=== PATIENT | male | born 1965 | race American Indian/Alaskan Native ===

== ENCOUNTER 2020-06-20 09:59 | Emergency (ER) | payer MEDICARE, MEDICAID, OTHER ==
[2020-06-20 10:51] LABS: ANION GAP 18.3 mEq/L (7-13)
--- NOTE | 2020-06-20 10:51 | EDM.PDOC ---
ED HPI GENERAL MEDICAL PROBLEM - General Chief Complaint: Respiratory Problem Stated Complaint: SHORTNESS OF BREATH Time Seen by Provider: 06/20/20 10:40 Source of Information: Reports: Patient History Limitations: Reports: No Limitations - History of Present Illness INITIAL COMMENTS - FREE TEXT/NARRATIVE: This 55 yo male patient reports to the ED with shortness of breath. The patient reports he has been noticing increased shortness of breath over the past month. The patient reports he has not attempted to be seen in the clinic. The patient reports he is supposed to be on medications, but has not taken them for "awhile". The patient reports he was out hunting deer this morning when he felt short of breath. The patient reports he used his 's nebulizer with reduction in his symptoms. Duration: Week(s):, Intermittent Location: Reports: Chest Quality: Reports: Other Severity: Moderate Improves with: Reports: Rest Worsens with: Reports: Movement Context: Reports: Other Associated Symptoms: Reports: No Other Symptoms - Related Data Allergies Allergy/AdvReac Type Severity Reaction Status Date / Time No Known Allergies Allergy Verified 06/20/20 10:11 Home Meds: Home Meds Omeprazole 1 tab PO DAILY 03/24/16 [History] Past Medical History HEENT History: Reports: None Cardiovascular History: Reports: Hypertension Respiratory History: Reports: Asthma, COPD Gastrointestinal History: Reports: None, GERD Genitourinary History: Reports: None Musculoskeletal History: Reports: None Neurological History: Reports: None Psychiatric History: Reports: None Endocrine/Metabolic History: Reports: Diabetes, Type II Hematologic History: Reports: Anemia Immunologic History: Reports: None Oncologic (Cancer) History: Reports: None Dermatologic History: Reports: None - Past Surgical History Head Surgeries/Procedures: Reports: None HEENT Surgical History: Reports: None GI Surgical History: Reports: Colonoscopy, EGD Musculoskeletal Surgical History: Reports: None Social & Family History - Tobacco Use Tobacco Use Status *Q: Current Every Day Tobacco User Years of Tobacco use: 20 Packs/Tins Daily: 0.5 - Caffeine Use Caffeine Use: Reports: None - Recreational Drug Use Recreational Drug Use: No ED ROS GENERAL - Review of Systems Review Of Systems: Comprehensive ROS is negative, except as noted in HPI. ED EXAM, GENERAL - Physical Exam Exam: See Below Exam Limited By: No Limitations General Appearance: Alert, WD/WN, Mild Distress Eye Exam: Bilateral Eye: EOMI, Normal Inspection, PERRL Ears: Normal External Exam, Normal Canal, Hearing Grossly Normal, Normal TMs Nose: Normal Inspection, Normal Mucosa, No Blood Throat/Mouth: Normal Inspection, Normal Lips, Normal Teeth, Normal Gums, Normal Oropharynx, Normal Voice, No Airway Compromise Head: Atraumatic, Normocephalic Neck: Normal Inspection, Supple, Non-Tender, Full Range of Motion Respiratory/Chest: No Respiratory Distress, Lungs Clear, Normal Breath Sounds, No Accessory Muscle Use, Chest Non-Tender Cardiovascular: Normal Peripheral Pulses, Regular Rate, Rhythm, No Edema, No Gallop, No JVD, No Murmur, No Rub GI/Abdominal: Normal Bowel Sounds, Soft, Non-Tender, No Organomegaly, No Distention, No Abnormal Bruit, No Mass (Male) Exam: Deferred Rectal (Males) Exam: Deferred Back Exam: Normal Inspection, Full Range of Motion, NT Extremities: Normal Inspection, Normal Range of Motion, Non-Tender, Normal Capillary Refill, No Pedal Edema Neurological: Alert, Oriented, CN II-XII Intact, Normal Cognition, Normal Gait, Normal Reflexes, No Motor/Sensory Deficits Psychiatric: Normal Affect, Normal Mood Skin Exam: Warm, Dry, Intact, Normal Color, No Rash Lymphatic: No Adenopathy Course - Vital Signs Last Recorded V/S: Last Vital Signs Temp 36.6 C 06/20/20 10:18 Pulse 79 06/20/20 10:18 Resp 13 06/20/20 10:18 BP 182/81 H 06/20/20 10:18 Pulse Ox 100 06/20/20 10:18 - Orders/Labs/Meds Orders: Active Orders 24 hr Category Date Time Status EKG Documentation Completion [RC] STAT Care 06/20/20 10:05 Active CULTURE BLOOD [BC] Stat Lab 06/20/20 10:17 Received Labs: Laboratory Tests 06/20/20 06/20/20 06/20/20 Range/Units 10:00 10:17 10:17 WBC 6.2 (5.0-10.0) 10^3/uL RBC 2.92 L (4.6-6.2) 10^6/uL Hgb 8.5 L D (14.0-18.0) g/dL Hct 26.7 L (40.0-54.0) % MCV 91.4 D (80-100) fL MCH 29.1 (27.0-34.0) pg MCHC 31.8 L (33.0-35.0) g/dL Plt Count 165 (150-450) 10^3/uL Neut % (Auto) 68.6 (42.2-75.2) % Lymph % (Auto) 19.6 L (20.5-50.1) % [place] % (Auto) 6.9 (2-8) % Eos % (Auto) 4.7 H (1.0-3.0) % Baso % (Auto) 0.2 (0.0-1.0) % Sodium 142 (136-145) mmol/L Potassium 5.3 H (3.5-5.1) mmol/L Chloride 109 H (98-107) mmol/L Carbon Dioxide 20 L (21-32) mmol/L Anion Gap 18.3 H (7-13) mEq/L BUN 58 H (7-18) mg/dL Creatinine 7.87 H* (0.70-1.30) mg/dL Est Cr Clr Drug Dosing 10.36 mL/min Estimated GFR (MDRD) 7 BUN/Creatinine Ratio 7.4 (No establ ref range) Glucose 94 (74-99) mg/dL Lactic Acid (0.4-2.0) mmol/L Calcium 7.2 L (8.5-10.1) mg/dL Total Bilirubin 0.3 (0.2-1.0) mg/dL AST 16 (15-37) U/L ALT 17 (16-63) U/L Alkaline Phosphatase 92 (46-116) U/L Troponin I 0.077 H* (0.000-0.056) ng/mL B-Natriuretic Peptide 766 H (0-100) pg/ml Total Protein 7.2 (6.4-8.2) g/dL Albumin 3.0 L (3.4-5.0) g/dL Globulin 4.2 Albumin/Globulin Ratio 0.71 Urine Color (YELLOW) Urine Appearance (CLEAR) Urine pH (5.0-9.0) Ur Specific [place] (1.005-1.030) Urine Protein (NEGATIVE) Urine Glucose (UA) (NEGATIVE) Urine Ketones (NEGATIVE) Urine Occult Blood (NEGATIVE) Urine Nitrite (NEGATIVE) Urine Bilirubin (NEGATIVE) Urine Urobilinogen (0.2-1.0) mg/dL Ur Leukocyte Esterase (NEGATIVE) Urine RBC /HPF Urine WBC (0-5/HPF) /HPF Ur Epithelial Cells (NOT SEEN) /HPF Urine Bacteria (0-FEW/HPF) /HPF SARS CoV-2 RNA Rapid GRACIELA Negative (NEGATIVE) 06/20/20 06/20/20 Range/Units 10:17 12:20 WBC (5.0-10.0) 10^3/uL RBC (4.6-6.2) 10^6/uL Hgb (14.0-18.0) g/dL Hct (40.0-54.0) % MCV (80-100) fL MCH (27.0-34.0) pg MCHC (33.0-35.0) g/dL Plt Count (150-450) 10^3/uL Neut % (Auto) (42.2-75.2) % Lymph % (Auto) (20.5-50.1) % [place] % (Auto) (2-8) % Eos % (Auto) (1.0-3.0) % Baso % (Auto) (0.0-1.0) % Sodium (136-145) mmol/L Potassium (3.5-5.1) mmol/L Chloride (98-107) mmol/L Carbon Dioxide (21-32) mmol/L Anion Gap (7-13) mEq/L BUN (7-18) mg/dL Creatinine (0.70-1.30) mg/dL Est Cr Clr Drug Dosing mL/min Estimated GFR (MDRD) BUN/Creatinine Ratio (No establ ref range) Glucose (74-99) mg/dL Lactic Acid 0.9 (0.4-2.0) mmol/L Calcium (8.5-10.1) mg/dL Total Bilirubin (0.2-1.0) mg/dL AST (15-37) U/L ALT (16-63) U/L Alkaline Phosphatase (46-116) U/L Troponin I (0.000-0.056) ng/mL B-Natriuretic Peptide (0-100) pg/ml Total Protein (6.4-8.2) g/dL Albumin (3.4-5.0) g/dL Globulin Albumin/Globulin Ratio Urine Color Yellow (YELLOW) Urine Appearance Clear (CLEAR) Urine pH 7.0 (5.0-9.0) Ur Specific Byers 1.025 (1.005-1.030) Urine Protein >=300 H (NEGATIVE) Urine Glucose (UA) Negative (NEGATIVE) Urine Ketones Negative (NEGATIVE) Urine Occult Blood Moderate H (NEGATIVE) Urine Nitrite Negative (NEGATIVE) Urine Bilirubin Negative (NEGATIVE) Urine Urobilinogen 0.2 (0.2-1.0) mg/dL Ur Leukocyte Esterase Negative (NEGATIVE) Urine RBC 5-10 H /HPF Urine WBC Not seen (0-5/HPF) /HPF Ur Epithelial Cells Rare (NOT SEEN) /HPF Urine Bacteria Not seen (0-FEW/HPF) /HPF SARS CoV-2 RNA Rapid GRACIELA (NEGATIVE) Meds: Medications Discontinued Medications Generic Name Dose Route Start Last Admin Trade Name Freq PRN Reason Stop Dose Admin Aspirin 324 mg 06/20/20 10:54 06/20/20 10:59 Aspirin PO 06/20/20 10:55 324 mg ONETIME ONE Administration Furosemide 40 mg 06/20/20 11:10 06/20/20 11:15 Lasix IVPUSH 06/20/20 11:11 40 mg NOW ONE Administration Departure - Departure Time of Disposition: 18:25 Disposition: DC/Tfer to [facility] Condition: Serious Clinical Impression: Elevated troponin I level Acute renal failure (ARF) Qualifiers: Acute renal failure type: unspecified Qualified Code(s): N17.9 - Acute kidney failure, unspecified - Discharge Information *PRESCRIPTION DRUG MONITORING PROGRAM REVIEWED*: Not Applicable *COPY OF PRESCRIPTION DRUG MONITORING REPORT IN PATIENT ANDREE: Not Applicable Forms: Interfacility Transfer [facility] Care Plan Goals: Discussed the patient's history, examination, lab results, EKG and x-ray results with Dr. Bunn ([facility]). Dr. Bunn accepted the patient for continued evaluation and management as an inpatient at [facility] in [place]. The patient will be transported by [facility]. Sepsis Event Note (ED) - Evaluation Sepsis Screening Result: No Definite Risk - Focused Exam Vital Signs: Vital Signs Temp Pulse Resp BP Pulse Ox 06/20/20 10:18 36.6 C 79 13 182/81 H 100 - My Orders Last 24 Hours: My Active Orders 06/20/20 10:05 EKG Documentation Completion [RC] STAT 06/20/20 10:17 CULTURE BLOOD [BC] Stat - Assessment/Plan Last 24 Hours: My Active Orders 06/20/20 10:05 EKG Documentation Completion [RC] STAT 06/20/20 10:17 CULTURE BLOOD [BC] Stat
[2020-06-20] MEDS ORDERED: Aspirin 81 MG Tab.Chew PO ONE (10:54)
[2020-06-20] MEDS ORDERED: Furosemide 40 MG/4 ML VIAL IVPUSH ONE (11:10)
--- NOTE | 2020-06-20 11:12 | CR ---
PROCEDURE INFORMATION: Exam: XR Chest, 2 Views Exam date and time: 06/20/2020 10:48 AM Age: 55 years old Clinical indication: Shortness of breath; Additional info: Short of breath TECHNIQUE: Imaging protocol: XR of the chest Views: 2 views. COMPARISON: CR CHEST PA/LAT 10/18/2008 2:38 PM FINDINGS: Lungs: There is patchy perihilar airspace opacity concerning for pneumonia. There is no pulmonary edema. Pleural space: Trace pleural fluid on the right. Heart/Mediastinum: Heart size is at the upper limits of normal. Bones/joints: Unremarkable. IMPRESSION: 1. Patchy perihilar infiltrates. Pneumonia is possible.
[2020-06-20 18:30] VITALS: BP 174/87; PULSE 72
== END 2020-06-20 19:00 ==
LOC: DL.ED 09:59
DX: N17.9 Acute kidney failure, unspecified (principal); R77.8 Other specified abnormalities of plasma proteins; I10 Essential (primary) hypertension; J44.9 Chronic obstructive pulmonary disease, unspecified; K21.9 Gastro-esophageal reflux disease without esophagitis; E11.9 Type 2 diabetes mellitus without complications; F17.210 Nicotine dependence, cigarettes, uncomplicated; Z20.828 Contact with and (suspected) exposure to other viral communicable diseases; Z79.899 Other long term (current) drug therapy
CPT/HCPCS: 36415; 71046; 80053; 81001; 83605; 83880; 84484; 85025; 87040; 93005; 96374; 99285; A9270; J1940; U0002

== ENCOUNTER 2021-07-01 17:27 | Inpatient (IN) | payer MEDICARE, OTHER ==
--- NOTE | 2021-07-01 18:00 | EDM.PDOC ---
ED HPI GENERAL MEDICAL PROBLEM - General Stated Complaint: CLINIC REFERED Time Seen by Provider: 07/01/21 17:40 Source of Information: Reports: Patient, RN, RN Notes Reviewed History Limitations: Reports: No Limitations - History of Present Illness INITIAL COMMENTS - FREE TEXT/NARRATIVE: Jona is a 56 y/o male with a history of ESRD who stopped hemodialysis approximately six months ago, who presents to the ED at the request of his PCP from [facility] for low hemoglobin. Per Dr. Clark, the patient was examined in the clinic today for acute epistaxis which had been ongoing for >24 hours. By the time he was evaluated the bleeding had stopped, but his blood draw revealed a Hgb of 6.0; the patient had already left the clinic. Upon arrival to this facility the patient is alert and oriented with no evidence of activity bleeding to either nare, dried blood noted to his left nare. He attest to mild blurry vision. He denies dizziness, lightheadedness, falls, chest pain/pressure, shortness of breath, or palpitations. He denies use of blood thinners or history of blood dyscrasias. - Related Data Allergies Allergy/AdvReac Type Severity Reaction Status Date / Time No Known Allergies Allergy Verified 07/01/21 18:11 Home Meds: Home Meds Omeprazole 1 tab PO DAILY 03/24/16 [History] Past Medical History HEENT History: Reports: None Cardiovascular History: Reports: Hypertension Respiratory History: Reports: Asthma, COPD Gastrointestinal History: Reports: None, GERD Genitourinary History: Reports: None Musculoskeletal History: Reports: None Neurological History: Reports: None Psychiatric History: Reports: None Endocrine/Metabolic History: Reports: Diabetes, Type II Hematologic History: Reports: Anemia Immunologic History: Reports: None Oncologic (Cancer) History: Reports: None Dermatologic History: Reports: None - Past Surgical History Head Surgeries/Procedures: Reports: None HEENT Surgical History: Reports: None GI Surgical History: Reports: Colonoscopy, EGD Musculoskeletal Surgical History: Reports: None Social & Family History - Caffeine Use Caffeine Use: Reports: None ED ROS GENERAL - Review of Systems Review Of Systems: Comprehensive ROS is negative, except as noted in HPI. ED EXAM, GENERAL - Physical Exam Exam: See Below Exam Limited By: No Limitations General Appearance: Alert, No Apparent Distress Eye Exam: Bilateral Eye: EOMI, Normal Inspection, PERRL (3m) Ears: Normal External Exam, Hearing Grossly Normal Nose: Normal Inspection, Normal Mucosa, No Blood Throat/Mouth: Normal Inspection, Normal Oropharynx, Normal Voice, No Airway Compromise Head: Atraumatic, Normocephalic Neck: Normal Inspection, Supple, Non-Tender, Full Range of Motion Respiratory/Chest: No Respiratory Distress, Lungs Clear, Normal Breath Sounds, No Accessory Muscle Use, Chest Non-Tender Cardiovascular: Normal Peripheral Pulses, Regular Rate, Rhythm, No Edema, No Gallop, No JVD, No Murmur, No Rub, Tachycardia Peripheral Pulses: 2+: Radial (L), Radial (R) GI/Abdominal: Normal Bowel Sounds, Soft, Non-Tender, No Distention, No Abnormal Bruit, No Mass, Pelvis Stable (Male) Exam: Deferred Rectal (Males) Exam: Deferred Back Exam: Normal Inspection Extremities: Normal Inspection, Normal Range of Motion, Non-Tender, Normal Capillary Refill, Pedal Edema (Trace pitting, bilaterally), Other (Fistula to left inner forearm, bruit and thrill present) Neurological: Alert, Oriented, CN II-XII Intact, Normal Cognition, Normal Gait, No Motor/Sensory Deficits Psychiatric: Normal Affect, Normal Mood Skin Exam: Warm, Dry, Intact, No Rash, Pallor. No: Cyanosis, Ecchymosis, E rythema, Jaundice, Mottled Course - Vital Signs Last Recorded V/S: Last Vital Signs Temp 97.3 F 07/02/21 08:00 Pulse 89 07/02/21 08:00 Resp 18 07/02/21 08:00 BP 161/89 H 07/02/21 08:00 Pulse Ox 99 07/02/21 08:00 - Orders/Labs/Meds Orders: Active Orders 24 hr Category Date Time Status Admission Diagnosis [ADT] Stat ADT 07/01/21 18:49 Ordered Admission Status [Patient Status] [ADT] Routine ADT 07/01/21 18:49 Active Transfuse Red Blood Cells [COMM] Stat Oth 07/01/21 18:02 Ordered Medication Orders Nitroglycerin (Nitroglycerin 0.4 Mg Tab.Sl) 0.4 mg SL Q5M PRN PRN Reason: Chest Pain Last Admin: 07/01/21 20:14 Dose: 0.4 mg Documented by: SALAZAR Labs: Laboratory Tests 07/01/21 07/01/21 07/01/21 Range/Units 17:48 17:48 17:48 WBC 5.8 (5.0-10.0) 10^3/uL RBC 1.83 L (4.6-6.2) 10^6/uL Hgb 5.7 L* D (14.0-18.0) g/dL Hct 17.5 L* (40.0-54.0) % MCV 95.6 D (80-100) fL MCH 31.1 (27.0-34.0) pg MCHC 32.6 L (33.0-35.0) g/dL Plt Count 175 (150-450) 10^3/uL Neut % (Auto) 62.9 (42.2-75.2) % Lymph % (Auto) 26.5 (20.5-50.1) % [place] % (Auto) 6.7 (2-8) % Eos % (Auto) 3.4 H (1.0-3.0) % Baso % (Auto) 0.5 (0.0-1.0) % Sodium 141 (136-145) mmol/L Potassium 7.3 H* D (3.5-5.1) mmol/L Chloride 106 (98-107) mmol/L Carbon Dioxide 12 L (21-32) mmol/L Anion Gap 30.3 H (7-13) mEq/L BUN 128 H D (7-18) mg/dL Creatinine 12.19 H* D (0.70-1.30) mg/dL Est Cr Clr Drug Dosing 6.39 mL/min Estimated GFR (MDRD) 4 BUN/Creatinine Ratio 10.5 (No establ ref range) Glucose 85 (70-99) mg/dL Calcium 6.3 L (8.5-10.1) mg/dL Magnesium 2.7 H (1.8-2.4) mg/dL Total Bilirubin 0.3 (0.2-1.0) mg/dL AST 15 (15-37) U/L ALT 14 L (16-63) U/L Alkaline Phosphatase 56 (46-116) U/L Troponin I High Sens (<=76) pg/mL Total Protein 7.3 (6.4-8.2) g/dL Albumin 3.4 (3.4-5.0) g/dL Globulin 3.9 Albumin/Globulin Ratio 0.9 SARS-CoV-2 RNA (GRACIELA) (NEGATIVE) Blood Type O POSITIVE Gel Antibody Screen Negative Crossmatch See Detail 07/01/21 07/01/21 Range/Units 17:48 18:47 WBC (5.0-10.0) 10^3/uL RBC (4.6-6.2) 10^6/uL Hgb (14.0-18.0) g/dL Hct (40.0-54.0) % MCV (80-100) fL MCH (27.0-34.0) pg MCHC (33.0-35.0) g/dL Plt Count (150-450) 10^3/uL Neut % (Auto) (42.2-75.2) % Lymph % (Auto) (20.5-50.1) % [place] % (Auto) (2-8) % Eos % (Auto) (1.0-3.0) % Baso % (Auto) (0.0-1.0) % Sodium (136-145) mmol/L Potassium (3.5-5.1) mmol/L Chloride (98-107) mmol/L Carbon Dioxide (21-32) mmol/L Anion Gap (7-13) mEq/L BUN (7-18) mg/dL Creatinine (0.70-1.30) mg/dL Est Cr Clr Drug Dosing mL/min Estimated GFR (MDRD) BUN/Creatinine Ratio (No establ ref range) Glucose (70-99) mg/dL Calcium (8.5-10.1) mg/dL Magnesium (1.8-2.4) mg/dL Total Bilirubin (0.2-1.0) mg/dL AST (15-37) U/L ALT (16-63) U/L Alkaline Phosphatase (46-116) U/L Troponin I High Sens 115 H* (<=76) pg/mL Total Protein (6.4-8.2) g/dL Albumin (3.4-5.0) g/dL Globulin Albumin/Globulin Ratio SARS-CoV-2 RNA (GRACIELA) Negative (NEGATIVE) Blood Type Gel Antibody Screen Crossmatch Meds: Medications Generic Name Dose Route Start Last Admin Trade Name Freq PRN Reason Stop Dose Admin Nitroglycerin 0.4 mg 07/01/21 20:12 07/01/21 20:14 Nitroglycerin 0.4 Mg Tab.Sl SL 0.4 mg Q5M PRN Administration Chest Pain Discontinued Medications Generic Name Dose Route Start Last Admin Trade Name Masoudq PRN Reason Stop Dose Admin Albuterol 6.7 gm 07/01/21 18:42 Albuterol 6.7 Gm Inhaler INH 07/01/21 18:43 ONETIME ONE Calcium Gluconate 1 gm 07/01/21 18:24 Calcium Gluconate 10% 1 Gm/10 Ml Sdv IVPUSH 07/01/21 18:25 ONETIME ONE Dextrose/Water 50 ml 07/01/21 18:24 50% Dextrose In Water 50 Ml Syringe IVPUSH Q15M PRN Hypoglycemia Glucagon 1 mg 07/01/21 18:24 Glucagon,Human Recombinant 1 Mg Vial IM Q15M PRN Hypoglycemia Dextrose/Water 500 mls @ 500 mls/hr 07/01/21 18:24 Dextrose 10% In Water IV 07/01/21 19:23 ONETIME ONE Insulin Human Regular 10 unit 07/01/21 18:24 Insulin Regular, Human 100 Units/Ml 3 Ml Vial IV 07/01/21 18:25 ONETIME ONE Nitroglycerin Confirm 07/01/21 20:13 Nitroglycerin 0.4 Mg Tab.Sl Administered 07/01/21 20:14 Dose 0.4 mg .ROUTE .ST-MED ONE - Re-Assessments/Exams Free Text/Narrative Re-Assessment/Exam: 07/01/21 Findings of examination and lab work reviewed with patient. Discussed risk vs benefit of blood transfusion. Patient verbalized understanding and agreement with the plan of care. The patient states he is Full Code K 7.3 and Bar Pointer 12 Patient is not agreeable to receiving hemodialysis or for transfer. Will administer Albuterol inhaler, 2 puffs. Will recheck CMP following 1st unit of PRBCs. Case discussed with Dr. Chapman who kindly accepted patient for admission to this facility. Departure - Departure Time of Disposition: 19:30 Disposition: Admitted As Inpatient 64 Clinical Impression: Low hemoglobin, Acute anterior epistaxis, History of hemodialysis, Hyperkalemia, Hypermagnesemia Chronic kidney disease Qualifiers: Chronic kidney disease stage: stage 5, not on chronic dialysis Qualified Code(s): N18.5 - Chronic kidney disease, stage 5 - Discharge Information - My Orders Last 24 Hours: My Active Orders 07/01/21 18:02 Transfuse Red Blood Cells [COMM] Stat 07/01/21 18:49 Admission Diagnosis [ADT] Stat Admission Status [Patient Status] [ADT] Routine - Assessment/Plan Last 24 Hours: My Active Orders 07/01/21 18:02 Transfuse Red Blood Cells [COMM] Stat 07/01/21 18:49 Admission Diagnosis [ADT] Stat Admission Status [Patient Status] [ADT] Routine
[2021-07-01 18:13] LABS: ANION GAP 30.3 mEq/L (7-13)
[2021-07-01] MEDS ORDERED: 50% Dextrose in Water 50 ML Syringe IVPUSH PRN (18:24)
[2021-07-01] MEDS ORDERED: Calcium Gluconate 10% 1 GM/10 ML SDV IVPUSH ONE (18:24)
[2021-07-01] MEDS ORDERED: Insulin Regular, Human 100 Units/ML 3 ML Vial IV ONE (18:24)
[2021-07-01] MEDS ORDERED: Dextrose 10% in Water 500 ML IV ONE (18:24)
[2021-07-01] MEDS ORDERED: Glucagon,Human Recombinant 1 MG Vial IM PRN (18:24)
[2021-07-01] MEDS ORDERED: Albuterol 6.7 GM Inhaler INH ONE (18:42)
[2021-07-01] MEDS ORDERED: Nitroglycerin 0.4 MG Tab.SL SL PRN (20:12)
[2021-07-01] MEDS ORDERED: Nitroglycerin 0.4 MG Tab.SL ONE (20:13)
[2021-07-01] MEDS ORDERED: Menthol/Methyl Salicylate 85 GM Tube TOP PRN (20:54)
[2021-07-02 00:28] LABS: ANION GAP 26.8 mEq/L (7-13)
[2021-07-02 10:59] LABS: ANION GAP 23.4 mEq/L (7-13)
--- NOTE | 2021-07-02 11:37 | PCM.DCSUM1 ---
Discharge Summary - Hospital Course Free Text/Narrative:: Jona was admitted last night for blood transfusion. He has end-stage renal disease, and was noted to have a hemoglobin of 5.5 in the ED. With his severe renal disease, his blood transfusion needed to be performed as slowly as possible, to prevent fluid overload and risk of TROLI. He received 3 units of blood over the past 14 hours, and did very well with this. This morning, he is able to ambulate without difficulty, is feeling much better, and is requesting discharge home. As mentioned in his H&P and in the ER note, Jona is not currently receiving dialysis. We had another discussion this morning about his wishes regarding this. I offered to send him emergently to a dialysis center for treatment, he declined this at this time. - Discharge Data Discharge Date: 07/02/21 Discharge Disposition: Home, Self-Care 01 Condition: Good - Referral to Home Health Primary Care Physician: PCP None - Discharge Plan *PRESCRIPTION DRUG MONITORING PROGRAM REVIEWED*: Not Applicable *COPY OF PRESCRIPTION DRUG MONITORING REPORT IN PATIENT ANDREE: Not Applicable Home Medications: Home Meds Omeprazole 20 mg PO DAILY 03/24/16 [History] Alogliptin Benzoate [Alogliptin] 6.25 mg PO DAILY 07/02/21 [History] Aspirin [Halfprin] 81 mg PO DAILY 07/02/21 [History] Calcium Acetate [PhosLo] 1,334 mg PO TIDMEALS 07/02/21 [History] Losartan [Cozaar] 25 mg PO BEDTIME 07/02/21 [History] NIFEdipine [Nifedipine ER] 60 mg PO DAILY 07/02/21 [History] Rosuvastatin [Crestor] 5 mg PO DAILY 07/02/21 [History] Patient Handouts: Kidney Transplant, Adult Referrals: Ashok Stewart LEGAL BILLER [Ordering Only Provider] - - Discharge Summary/Plan Comment DC Time >30 min.: No Total # of Minutes for Discharge Time: 20 minutes Discharge Summary/Plan Comment: Discharge diagnoses: 1. End-stage renal disease, previously on dialysis, now not receiving any care 2. Anemia of chronic disease, exacerbated by acute epistaxis Discharge plan: 1. We gave him the number for the [facility] [place]. I strongly encouraged Jona to contact them, and get a second opinion. He will follow-up with us as needed. - General Info Date of Service: 07/02/21 Subjective Update: See above summary - Patient Data Vitals - Most Recent: Last Vital Signs Temp 97.3 F 07/02/21 08:00 Pulse 89 07/02/21 08:00 Resp 18 07/02/21 08:00 BP 161/89 H 07/02/21 08:00 Pulse Ox 99 07/02/21 08:00 Weight - Most Recent: 197 lb 3.2 oz I&O - Last 24 hours: Intake & Output 07/01/21 07/02/21 07/02/21 22:59 06:59 14:59 Intake Total 0 792 777 Output Total 300 750 Balance -300 42 777 Lab Results - Last 24 hrs: Laboratory Results - last 24 hr 07/01/21 07/01/21 07/01/21 Range/Units 17:48 17:48 17:48 WBC 5.8 (5.0-10.0) 10^3/uL RBC 1.83 L (4.6-6.2) 10^6/uL Hgb 5.7 L* D (14.0-18.0) g/dL Hct 17.5 L* (40.0-54.0) % MCV 95.6 D (80-100) fL MCH 31.1 (27.0-34.0) pg MCHC 32.6 L (33.0-35.0) g/dL Plt Count 175 (150-450) 10^3/uL Neut % (Auto) 62.9 (42.2-75.2) % Lymph % (Auto) 26.5 (20.5-50.1) % [place] % (Auto) 6.7 (2-8) % Eos % (Auto) 3.4 H (1.0-3.0) % Baso % (Auto) 0.5 (0.0-1.0) % Sodium 141 (136-145) mmol/L Potassium 7.3 H* D (3.5-5.1) mmol/L Chloride 106 (98-107) mmol/L Carbon Dioxide 12 L (21-32) mmol/L Anion Gap 30.3 H (7-13) mEq/L BUN 128 H D (7-18) mg/dL Creatinine 12.19 H* D (0.70-1.30) mg/dL Est Cr Clr Drug Dosing 6.39 mL/min Estimated GFR (MDRD) 4 BUN/Creatinine Ratio 10.5 (No establ ref range) Glucose 85 (70-99) mg/dL Calcium 6.3 L (8.5-10.1) mg/dL Magnesium 2.7 H (1.8-2.4) mg/dL Total Bilirubin 0.3 (0.2-1.0) mg/dL AST 15 (15-37) U/L ALT 14 L (16-63) U/L Alkaline Phosphatase 56 (46-116) U/L Troponin I High Sens (<=76) pg/mL Total Protein 7.3 (6.4-8.2) g/dL Albumin 3.4 (3.4-5.0) g/dL Globulin 3.9 Albumin/Globulin Ratio 0.9 SARS-CoV-2 RNA (GRACIELA) (NEGATIVE) Blood Type O POSITIVE Gel Antibody Screen Negative Crossmatch See Detail 07/01/21 07/01/21 07/01/21 Range/Units 17:48 18:47 20:15 WBC (5.0-10.0) 10^3/uL RBC (4.6-6.2) 10^6/uL Hgb (14.0-18.0) g/dL Hct (40.0-54.0) % MCV (80-100) fL MCH (27.0-34.0) pg MCHC (33.0-35.0) g/dL Plt Count (150-450) 10^3/uL Neut % (Auto) (42.2-75.2) % Lymph % (Auto) (20.5-50.1) % [place] % (Auto) (2-8) % Eos % (Auto) (1.0-3.0) % Baso % (Auto) (0.0-1.0) % Sodium (136-145) mmol/L Potassium (3.5-5.1) mmol/L Chloride (98-107) mmol/L Carbon Dioxide (21-32) mmol/L Anion Gap (7-13) mEq/L BUN (7-18) mg/dL Creatinine (0.70-1.30) mg/dL Est Cr Clr Drug Dosing mL/min Estimated GFR (MDRD) BUN/Creatinine Ratio (No establ ref range) Glucose (70-99) mg/dL Calcium (8.5-10.1) mg/dL Magnesium (1.8-2.4) mg/dL Total Bilirubin (0.2-1.0) mg/dL AST (15-37) U/L ALT (16-63) U/L Alkaline Phosphatase (46-116) U/L Troponin I High Sens 115 H* 125 H* (<=76) pg/mL Total Protein (6.4-8.2) g/dL Albumin (3.4-5.0) g/dL Globulin Albumin/Globulin Ratio SARS-CoV-2 RNA (GRACIELA) Negative (NEGATIVE) Blood Type Gel Antibody Screen Crossmatch 07/01/21 07/02/21 07/02/21 Range/Units 23:55 10:30 10:30 WBC 6.6 (5.0-10.0) 10^3/uL RBC 2.49 L (4.6-6.2) 10^6/uL Hgb 7.7 L D (14.0-18.0) g/dL Hct 22.7 L (40.0-54.0) % MCV 91.2 D (80-100) fL MCH 30.9 (27.0-34.0) pg MCHC 33.9 (33.0-35.0) g/dL Plt Count 118 L (150-450) 10^3/uL Neut % (Auto) 60.8 (42.2-75.2) % Lymph % (Auto) 26.1 (20.5-50.1) % [place] % (Auto) 9.0 H (2-8) % Eos % (Auto) 3.8 H (1.0-3.0) % Baso % (Auto) 0.3 (0.0-1.0) % Sodium 141 140 (136-145) mmol/L Potassium 5.8 H D 5.4 H (3.5-5.1) mmol/L Chloride 107 108 H (98-107) mmol/L Carbon Dioxide 13 L 14 L (21-32) mmol/L Anion Gap 26.8 H 23.4 H (7-13) mEq/L BUN 127 H 131 H (7-18) mg/dL Creatinine 12.10 H* 12.12 H* (0.70-1.30) mg/dL Est Cr Clr Drug Dosing 6.44 6.43 mL/min Estimated GFR (MDRD) 4 4 BUN/Creatinine Ratio 10.5 10.8 (No establ ref range) Glucose 93 112 H (70-99) mg/dL Calcium 6.0 L 6.2 L (8.5-10.1) mg/dL Magnesium (1.8-2.4) mg/dL Total Bilirubin 0.3 0.4 (0.2-1.0) mg/dL AST 10 L 10 L (15-37) U/L ALT 14 L 14 L (16-63) U/L Alkaline Phosphatase 53 51 (46-116) U/L Troponin I High Sens (<=76) pg/mL Total Protein 6.7 6.4 (6.4-8.2) g/dL Albumin 3.1 L 3.0 L (3.4-5.0) g/dL Globulin 3.6 3.4 Albumin/Globulin Ratio 0.86 0.88 SARS-CoV-2 RNA (GRACIELA) (NEGATIVE) Blood Type Gel Antibody Screen Crossmatch Med Orders - Current: Current Medications Nitroglycerin (Nitroglycerin 0.4 Mg Tab.Sl) 0.4 mg SL Q5M PRN PRN Reason: Chest Pain Last Admin: 07/01/21 20:14 Dose: 0.4 mg Documented by: Discontinued Medications Albuterol (Albuterol 6.7 Gm Inhaler) 6.7 gm INH ONETIME ONE Stop: 07/01/21 18:43 Calcium Gluconate (Calcium Gluconate 10% 1 Gm/10 Ml Sdv) 1 gm IVPUSH ONETIME ONE Stop: 07/01/21 18:25 Dextrose/Water (50% Dextrose In Water 50 Ml Syringe) 50 ml IVPUSH Q15M PRN PRN Reason: Hypoglycemia Glucagon (Glucagon,Human Recombinant 1 Mg Vial) 1 mg IM Q15M PRN PRN Reason: Hypoglycemia Dextrose/Water (Dextrose 10% In Water) 500 mls @ 500 mls/hr IV ONETIME ONE Stop: 07/01/21 19:23 Insulin Human Regular (Insulin Regular, Human 100 Units/Ml 3 Ml Vial) 10 unit IV ONETIME ONE Stop: 07/01/21 18:25 Nitroglycerin (Nitroglycerin 0.4 Mg Tab.Sl) Confirm Administered Dose 0.4 mg .ROUTE .STK-MED ONE Stop: 07/01/21 20:14 Last Admin: 07/02/21 08:51 Dose: Not Given Documented by: - Exam Physical Findings Comments:: Discharge exam: General: Jona is a 56-year-old man in no acute distress. He is alert and oriented 3 Oropharynx is clear, mucous membranes are moist Heart: Regular rate and rhythm, 2/6 systolic murmur Lungs: Clear to auscultation throughout
[2021-07-02 13:01] VITALS: BP 173/77; PULSE 78
--- NOTE | 2021-07-13 11:27 | PCM.HP ---
H&P History of Present Illness - General Date of Service: 07/01/21 Admit Problem/Dx: Admission Diagnosis/Problem Admission Diagnosis/Problem Low hemoglobin - History of Present Illness Initial Comments - Free Text/Narative: Jona is a 56-year-old man presented to the ER this evening with a nosebleed. He was found to have a hemoglobin of 5.7. He relays to us that he has end-stage renal disease, and up until about 6 months ago had been going through regular dialysis treatments. He inquired as to a kidney transplant, but was told by his land planner that he was not suitable for that. Patient states that he quit his dialysis treatments about 6 months ago and has not been going since. He does still make urine daily. With that low hemoglobin of 5.7, it was decided that he needed blood transfusion. With the fact that he has end-stage renal disease, and is not undergoing dialysis, and the fact that he needs 3 units of packed red blood cell transfusion, decision was made to admit him for gentle transfusion of those packed red blood cells - Related Data Allergies/Adverse Reactions: Allergies Allergy/AdvReac Type Severity Reaction Status Date / Time No Known Allergies Allergy Verified 07/01/21 18:11 Home Medications: Home Meds Omeprazole 20 mg PO DAILY 03/24/16 [History] Alogliptin Benzoate [Alogliptin] 6.25 mg PO DAILY 07/02/21 [History] Aspirin [Halfprin] 81 mg PO DAILY 07/02/21 [History] Calcium Acetate [PhosLo] 1,334 mg PO TIDMEALS 07/02/21 [History] Losartan [Cozaar] 25 mg PO BEDTIME 07/02/21 [History] NIFEdipine [Nifedipine ER] 60 mg PO DAILY 07/02/21 [History] Rosuvastatin [Crestor] 5 mg PO DAILY 07/02/21 [History] Past Medical History HEENT History: Reports: None Cardiovascular History: Reports: Hypertension, [place] Respiratory History: Reports: Asthma, COPD Gastrointestinal History: Reports: GERD Genitourinary History: Reports: Dialysis, Other (See Below) Other Genitourinary History: stage 4 kidney diseease Musculoskeletal History: Reports: None Neurological History: Reports: None Psychiatric History: Reports: None Endocrine/Metabolic History: Reports: Diabetes, Type II Hematologic History: Reports: Anemia Immunologic History: Reports: None Oncologic (Cancer) History: Reports: None Dermatologic History: Reports: None - Past Surgical History HEENT Surgical History: Reports: Cataract Surgery Cardiovascular Surgical History: Reports: None Respiratory Surgical History: Reports: None GI Surgical History: Reports: Colonoscopy, EGD Male Surgical History: Reports: None Endocrine Surgical History: Reports: None Musculoskeletal Surgical History: Reports: None Social & Family History - Family History Family Medical History: No Pertinent Family History - Tobacco Use Tobacco Use Status *Q: Former Tobacco User Used Tobacco, but Quit: Yes Month/Year Tobacco Last Used: 1.5 yrs ago - Caffeine Use Caffeine Use: Reports: Coffee - Recreational Drug Use Recreational Drug Use: No H&P Review of Systems - Review of Systems: Review Of Systems: Comprehensive ROS is negative, except as noted in HPI. Exam - Exam Exam: See Below - Vital Signs Vital Signs: Last Vital Signs Temp 98.9 F 07/02/21 12:00 Pulse 78 07/02/21 12:00 Resp 18 07/02/21 12:00 BP 173/77 H 07/02/21 12:00 Pulse Ox 100 07/02/21 12:00 Weight: 197 lb 3.2 oz - Exam Physical Exam Comments:: General: Patient is a 48-year-old man in no acute distress Oropharynx is clear, mucous membranes are moist Heart: Regular rate and rhythm, 2/6 systolic murmur heard throughout Lungs: Clear to auscultation throughout Abdomen: Soft, nontender to palpation, normal bowel sounds heard throughout. No ascites is noted - Patient Data Result Diagrams: 07/02/21 10:30 07/02/21 10:30 - Problem List (1) End stage kidney disease SNOMED Code(s): 11881309 ICD Code: N18.6 - END STAGE RENAL DISEASE Status: Acute (2) Anemia in chronic renal disease SNOMED Code(s): 276537705 ICD Code: N18.9 - CHRONIC KIDNEY DISEASE, UNSPECIFIED; D63.1 - ANEMIA IN CHRONIC KIDNEY DISEASE Status: Acute Problem List Initiated/Reviewed/Updated: Yes Assessment/Plan Comment:: Assessment/Plan: 1. 56-year-old man with end-stage renal disease, currently not on regular hemodialysis - We will monitor fluid status very carefully, as he is at high risk of fluid overload. Unfortunately we can really give him a diuretic, as it will not function with him 2. Anemia of chronic disease with acute exacerbation - We will transfuse 3 units of packed red blood cells overnight tonight. We will do these as slowly as we can her labs recommendations. - We will recheck his hemoglobin in the a.m. after his last unit is completed 3. History of coronary artery disease 4, VTE prophylaxis: With his recent nosebleed, he would be at high risk of bleeding complication, so we will not perform pharmacologic VTE prophylaxis at this time 5. Patient reiterates that he is full CODE STATUS at this time
== END 2021-07-02 13:57 | disposition home or self-care (01) | DRG 682 ==
LOC: DL.ED 17:27 → DL.MS 19:20
PROVIDERS: ADMIT Family Medicine; ATTEND Family Medicine
DX: I12.0 Hypertensive chronic kidney disease with stage 5 chronic kidney disease or end stage renal disease (principal); N18.6 End stage renal disease; E83.41 Hypermagnesemia; D63.1 Anemia in chronic kidney disease; R04.0 Epistaxis; E87.5 Hyperkalemia; E11.22 Type 2 diabetes mellitus with diabetic chronic kidney disease; E83.42 Hypomagnesemia; K21.9 Gastro-esophageal reflux disease without esophagitis; J44.9 Chronic obstructive pulmonary disease, unspecified; Z20.822 Contact with and (suspected) exposure to COVID-19; Z79.899 Other long term (current) drug therapy
CPT/HCPCS: 36415; 36430; 80053; 83735; 84484; 85025; 86850; 86900; 86901; 86920; 86922; 93005; 99221; 99238; 99284-25; A9270-GY; J1815-GY; P9016; U0002

== ENCOUNTER 2021-07-21 16:26 | Emergency (ER) | payer MEDICARE, OTHER ==
--- NOTE | 2021-07-21 17:17 | EDM.PDOC ---
<Ludwig Aguilar Acosta - Last Filed: 07/21/21 18:47> ED HPI GENERAL MEDICAL PROBLEM - General Chief Complaint: General Stated Complaint: BLOOD TRANS FUSION Time Seen by Provider: 07/21/21 17:00 Source of Information: Reports: Patient, Provider History Limitations: Reports: No Limitations - History of Present Illness INITIAL COMMENTS - FREE TEXT/NARRATIVE: This 56 yo male patient was sent to the ED from the [facility] due to a low hemoglobin. The patient's provider reported that the patient is supposed to have hemodialysis, but has not had any dialysis for the past 6 months. The patient's labs demonstrated a Hemoglobin today of 6.7. The patient's provider requested that the patient get a transfusion. When the provider was advised that the transfusion could be ordered on an outpatient basis, the provider stated that the patient would be sent to the ED for evaluation and management. The patient reports he has started to feel weak and lightheaded over the past couple of days. The patient reports he has been having frequent nose bleeds (last nosebleed was on Monday). The patient reports he has an appointment with nephrology on 07/27/21 here in [place]. Duration: Day(s):, Constant, Getting Worse Location: Reports: Generalized Quality: Reports: Other Severity: Moderate Improves with: Reports: None Worsens with: Reports: None Context: Reports: Other Associated Symptoms: Reports: No Other Symptoms - Related Data Allergies Allergy/AdvReac Type Severity Reaction Status Date / Time No Known Allergies Allergy Verified 07/21/21 16:52 Home Meds: Home Meds Omeprazole 20 mg PO DAILY 03/24/16 [History] Alogliptin Benzoate [Alogliptin] 6.25 mg PO DAILY 07/02/21 [History] Aspirin [Halfprin] 81 mg PO DAILY 07/02/21 [History] Calcium Acetate [PhosLo] 1,334 mg PO TIDMEALS 07/02/21 [History] Losartan [Cozaar] 25 mg PO BEDTIME 07/02/21 [History] NIFEdipine [Nifedipine ER] 60 mg PO DAILY 07/02/21 [History] Rosuvastatin [Crestor] 5 mg PO DAILY 07/02/21 [History] Past Medical History HEENT History: Reports: None Cardiovascular History: Reports: Hypertension, [place] Respiratory History: Reports: Asthma, COPD Gastrointestinal History: Reports: GERD Genitourinary History: Reports: Dialysis, Other (See Below) Other Genitourinary History: stage 4 kidney diseease Musculoskeletal History: Reports: None Neurological History: Reports: None Psychiatric History: Reports: None Endocrine/Metabolic History: Reports: Diabetes, Type II Hematologic History: Reports: Anemia Immunologic History: Reports: None Oncologic (Cancer) History: Reports: None Dermatologic History: Reports: None - Past Surgical History HEENT Surgical History: Reports: Cataract Surgery Cardiovascular Surgical History: Reports: None Respiratory Surgical History: Reports: None GI Surgical History: Reports: Colonoscopy, EGD Male Surgical History: Reports: None Endocrine Surgical History: Reports: None Musculoskeletal Surgical History: Reports: None Social & Family History - Family History Family Medical History: No Pertinent Family History - Caffeine Use Caffeine Use: Reports: Coffee ED ROS GENERAL - Review of Systems Review Of Systems: Comprehensive ROS is negative, except as noted in HPI. ED EXAM, GENERAL - Physical Exam Exam: See Below Exam Limited By: No Limitations General Appearance: Alert, WD/WN, Mild Distress Eye Exam: Bilateral Eye: EOMI, Normal Inspection, PERRL Ears: Normal External Exam, Normal Canal, Hearing Grossly Normal, Normal TMs Nose: Normal Inspection, Normal Mucosa, No Blood Throat/Mouth: Normal Inspection, Normal Lips, Normal Teeth, Normal Gums, Normal Oropharynx, Normal Voice, No Airway Compromise Head: Atraumatic, Normocephalic Neck: Normal Inspection, Supple, Non-Tender, Full Range of Motion Respiratory/Chest: No Respiratory Distress, Lungs Clear, Normal Breath Sounds, No Accessory Muscle Use, Chest Non-Tender Cardiovascular: Normal Peripheral Pulses, Regular Rate, Rhythm, No Edema, No Gallop, No JVD, No Murmur, No Rub GI/Abdominal: Normal Bowel Sounds, Soft, Non-Tender, No Organomegaly, No Distention, No Abnormal Bruit, No Mass (Male) Exam: Deferred Rectal (Males) Exam: Deferred Back Exam: Normal Inspection, Full Range of Motion, NT Extremities: Normal Inspection, Normal Range of Motion, Non-Tender, Normal Capillary Refill, No Pedal Edema Neurological: Alert, Oriented, CN II-XII Intact, Normal Cognition, Normal Gait, Normal Reflexes, No Motor/Sensory Deficits Psychiatric: Normal Affect, Normal Mood Skin Exam: Warm, Dry, Intact, Normal Color, No Rash Lymphatic: No Adenopathy #1 Interpretation EKG Date: 07/21/21 Time: 18:06 Rhythm: NSR Rate (Beats/Min): 65 [place]: Normal P-Wave: Present QRS: Normal ST-T: Normal QT: Normal Comparison: No Change Departure - Departure Disposition: Home, Self-Care 01 Clinical Impression: Anemia, History of renal dialysis, Hyperkalemia - Discharge Information Referrals: Jeevan,Hussain [Primary Care Provider] - Forms: ED Department Discharge Additional Instructions: Clinic follow up Monday to recheck blood counts limit fluid intake Contact nephrology clinic in am to determine if appoint for 07/27 can be moved closer urgent follow up if difficulty breathing limit potassium rich foods Sepsis Event Note (ED) - Evaluation Sepsis Screening Result: No Definite Risk <Yady Velazquez - Last Filed: 07/21/21 22:33> Course - Vital Signs Last Recorded V/S: Last Vital Signs Temp 97.8 F 07/21/21 21:45 Pulse 64 07/21/21 21:45 Resp 18 07/21/21 21:45 BP 142/68 H 07/21/21 21:45 Pulse Ox 100 07/21/21 16:49 - Orders/Labs/Meds Labs: Laboratory Tests 07/21/21 07/21/21 07/21/21 Range/Units 17:24 17:24 17:24 WBC 6.4 (5.0-10.0) 10^3/uL RBC 2.07 L (4.6-6.2) 10^6/uL Hgb 6.3 L* (14.0-18.0) g/dL Hct 19.2 L* (40.0-54.0) % MCV 92.8 (80-100) fL MCH 30.4 (27.0-34.0) pg MCHC 32.8 L (33.0-35.0) g/dL Plt Count 153 (150-450) 10^3/uL Neut % (Auto) 65.4 (42.2-75.2) % Lymph % (Auto) 22.2 (20.5-50.1) % [place] % (Auto) 6.6 (2-8) % Eos % (Auto) 5.5 H (1.0-3.0) % Baso % (Auto) 0.3 (0.0-1.0) % Sodium 139 (136-145) mmol/L Potassium 5.5 H (3.5-5.1) mmol/L Chloride 108 H (98-107) mmol/L Carbon Dioxide 14 L (21-32) mmol/L Anion Gap 22.5 H (7-13) mEq/L BUN 88 H D (7-18) mg/dL Creatinine 11.86 H* (0.70-1.30) mg/dL Est Cr Clr Drug Dosing 6.35 mL/min Estimated GFR (MDRD) 4 BUN/Creatinine Ratio 7.4 (No establ ref range) Glucose 89 (70-99) mg/dL Calcium 6.6 L (8.5-10.1) mg/dL Total Bilirubin 0.3 (0.2-1.0) mg/dL AST 12 L (15-37) U/L ALT 22 (16-63) U/L Alkaline Phosphatase 68 (46-116) U/L B-Natriuretic Peptide (0-100) pg/ml Total Protein 7.2 (6.4-8.2) g/dL Albumin 3.4 (3.4-5.0) g/dL Globulin 3.8 Albumin/Globulin Ratio 0.9 Influenza Type A RNA (NEGATIVE) Influenza Type B RNA (NEGATIVE) SARS-CoV-2 RNA (GR[place]IEL[place]) (NEGATIVE) Blood Type O POSITIVE Gel Antibody Screen Negative Crossmatch See Detail 07/21/21 07/21/21 Range/Units 17:24 20:01 WBC (5.0-10.0) 10^3/uL RBC (4.6-6.2) 10^6/uL Hgb (14.0-18.0) g/dL Hct (40.0-54.0) % MCV (80-100) fL MCH (27.0-34.0) pg MCHC (33.0-35.0) g/dL Plt Count (150-450) 10^3/uL Neut % (Auto) (42.2-75.2) % Lymph % (Auto) (20.5-50.1) % [place] % (Auto) (2-8) % Eos % (Auto) (1.0-3.0) % Baso % (Auto) (0.0-1.0) % Sodium (136-145) mmol/L Potassium (3.5-5.1) mmol/L Chloride (98-107) mmol/L Carbon Dioxide (21-32) mmol/L Anion Gap (7-13) mEq/L BUN (7-18) mg/dL Creatinine (0.70-1.30) mg/dL Est Cr Clr Drug Dosing mL/min Estimated GFR (MDRD) BUN/Creatinine Ratio (No establ ref range) Glucose (70-99) mg/dL Calcium (8.5-10.1) mg/dL Total Bilirubin (0.2-1.0) mg/dL AST (15-37) U/L ALT (16-63) U/L Alkaline Phosphatase (46-116) U/L B-Natriuretic Peptide 88 (0-100) pg/ml Total Protein (6.4-8.2) g/dL Albumin (3.4-5.0) g/dL Globulin Albumin/Globulin Ratio Influenza Type A RNA Negative (NEGATIVE) Influenza Type B RNA Negative (NEGATIVE) SARS-CoV-2 RNA (GRACIELA) Negative (NEGATIVE) Blood Type Gel Antibody Screen Crossmatch Meds: Medications Discontinued Medications Generic Name Dose Route Start Last Admin Trade Name Freq PRN Reason Stop Dose Admin Furosemide 40 mg 07/21/21 21:05 07/21/21 21:19 Furosemide 40 Mg/4 Ml Vial IVPUSH 07/21/21 21:06 40 mg ONETIME ONE Administration - Re-Assessments/Exams Free Text/Narrative Re-Assessment/Exam: 07/21/21 22:[address] Lee, patient stable , does not need admission. Vitalsigns remain stable. Patient denies complaints. Blood infused. lung sounds clear bilatterally. Voided 350ml yellow urine. Discharge instructions to [facility]. Departure - Departure Time of Disposition: 22:27 Condition: Fair - Discharge Information *PRESCRIPTION DRUG MONITORING PROGRAM REVIEWED*: No *COPY OF PRESCRIPTION DRUG MONITORING REPORT IN PATIENT ANDREE: No Sepsis Event Note (ED) - Focused Exam Vital Signs: Vital Signs Temp Temp Pulse Resp BP Pulse Ox 07/21/21 21:45 97.8 F 64 18 142/68 H 07/21/21 19:31 97.9 F 66 20 136/67 07/21/21 19:16 96.8 F L 66 20 150/66 H 07/21/21 19:01 98 F 63 14 140/68 07/21/21 16:49 98 F 68 20 145/79 H 100
[2021-07-21 17:48] LABS: ANION GAP 22.5 mEq/L (7-13)
[2021-07-21 20:47] LABS: CORONAVIRUS COVID-19 NAA NEGATIVE (NEGATIVE)
[2021-07-21] MEDS ORDERED: Furosemide 40 MG/4 ML VIAL IVPUSH ONE (21:05)
[2021-07-21 22:55] VITALS: BP 140/65; PULSE 66
== END 2021-07-21 22:45 | disposition home or self-care (01) ==
LOC: DL.ED 16:26
DX: I12.9 Hypertensive chronic kidney disease with stage 1 through stage 4 chronic kidney disease, or unspecified chronic kidney disease (principal); E11.22 Type 2 diabetes mellitus with diabetic chronic kidney disease; N18.4 Chronic kidney disease, stage 4 (severe); D63.1 Anemia in chronic kidney disease; E87.5 Hyperkalemia; I25.2 Old myocardial infarction; K21.9 Gastro-esophageal reflux disease without esophagitis; J44.9 Chronic obstructive pulmonary disease, unspecified; Z79.82 Long term (current) use of aspirin; Z79.899 Other long term (current) drug therapy; Z99.2 Dependence on renal dialysis; Z20.822 Contact with and (suspected) exposure to COVID-19
CPT/HCPCS: 0240U; 36415; 36430; 80053; 83880; 85025; 86850; 86900; 86901; 86920; 86922; 93005; 96374; 99284-25; J1940; P9016

== ENCOUNTER 2021-12-31 16:01 | Emergency (ER) | payer MEDICARE, OTHER ==
[~2021-12-31 16:01] MED LIST: Sodium Chloride 0.9% 10 ML Syringe FLUSH PRN
[2021-12-31] MEDS: Nitroglycerin/D5W 25 MG/250 ML BOTTLE IV SCH ×4 (16:37→20:22)
[2021-12-31 16:41] LABS: CHLORIDE,CL 106 mmol/L (98-107); SODIUM,NA 139 mmol/L (136-145)
[2021-12-31 16:49] VITALS: BP 189/103
[2021-12-31] MEDS ORDERED: Calcium Chloride 10% 1 GM/10 ML Syringe IVPUSH ONE (16:52)
[2021-12-31 16:55] VITALS: PULSE 96
== END 2021-12-31 20:22 ==
LOC: DL.ED 16:01
DX: I13.2 Hypertensive heart and chronic kidney disease with heart failure and with stage 5 chronic kidney disease, or end stage renal disease (principal); E11.22 Type 2 diabetes mellitus with diabetic chronic kidney disease; N18.5 Chronic kidney disease, stage 5; I50.9 Heart failure, unspecified; I25.2 Old myocardial infarction; J44.9 Chronic obstructive pulmonary disease, unspecified; Z79.82 Long term (current) use of aspirin; Z79.899 Other long term (current) drug therapy; Z20.822 Contact with and (suspected) exposure to COVID-19
CPT/HCPCS: 36415; 71045; 80053; 83735; 83880; 84100; 84484; 85025; 86140; 93005; 94660; 96365; 96375; 99285-25; J3490; U0002

== ENCOUNTER 2022-08-19 12:26 | Emergency (ER) | payer MEDICARE, OTHER ==
[2022-08-19 12:50] LABS: ANION GAP 14.7 mEq/L (7-13)
[2022-08-19] MEDS ORDERED: Acetaminophen 500 MG Tab PO ONE (17:24)
[2022-08-19 18:11] VITALS: BP 149/87; PULSE 72
== END 2022-08-19 18:03 | disposition home or self-care (01) ==
LOC: DL.ED 12:26
DX: D64.9 Anemia, unspecified (principal); I10 Essential (primary) hypertension; E11.9 Type 2 diabetes mellitus without complications; I25.2 Old myocardial infarction; Z79.899 Other long term (current) drug therapy; Z79.82 Long term (current) use of aspirin
CPT/HCPCS: 36415; 36430; 80053; 82272; 85025; 86850; 86870; 86900; 86901; 86920; 86922; 99284; A9270; P9016; 86902

== ENCOUNTER 2022-08-23 14:16 | Emergency (ER) | payer MEDICARE, OTHER ==
[2022-08-23 13:10] VITALS: BP 176/78; PULSE 76
[2022-08-23 13:33] LABS: ANION GAP 21.1 mEq/L (7-13)
[~2022-08-23 14:16] MED LIST changes: +Acetaminophen 325 MG Tab ONE; +Acetaminophen 325 MG Tab PO ONE; -Sodium Chloride 0.9% 10 ML Syringe FLUSH PRN
== END 2022-08-23 14:30 | disposition home or self-care (01) ==
LOC: DL.ED 14:16
DX: R51.9 Headache, unspecified (principal); E11.22 Type 2 diabetes mellitus with diabetic chronic kidney disease; I12.9 Hypertensive chronic kidney disease with stage 1 through stage 4 chronic kidney disease, or unspecified chronic kidney disease; N18.4 Chronic kidney disease, stage 4 (severe); D63.1 Anemia in chronic kidney disease; Z99.2 Dependence on renal dialysis; I25.2 Old myocardial infarction; J44.9 Chronic obstructive pulmonary disease, unspecified; K21.9 Gastro-esophageal reflux disease without esophagitis; Z79.899 Other long term (current) drug therapy
CPT/HCPCS: 36415; 70450; 70486; 80053; 83605; 85025; 87040; 99284; A9270

== ENCOUNTER 2022-11-07 13:16 | Emergency (ER) | payer MEDICARE, OTHER ==
[2022-11-07] MEDS ORDERED: Sodium Chloride 0.9% 10 ML Syringe FLUSH PRN (13:33)
[2022-11-07] MEDS ORDERED: Aspirin 81 MG Tab.Chew PO ONE (13:45)
[2022-11-07] MEDS ORDERED: Furosemide 100 MG/10 ML SDV IVPUSH ONE (13:46)
[2022-11-07] MEDS ORDERED: Nitroglycerin/D5W 25 MG/250 ML BOTTLE IV SCH (14:00)
[2022-11-07 14:18] LABS: PTT,PARTIAL THROMBOPLSTIN TIME 27.4 SEC (22.0-34.0)
[2022-11-07 14:21] LABS: ANION GAP 22.1 mEq/L (7-13); CHLORIDE,CL 105 mmol/L (98-107); SODIUM,NA 144 mmol/L (136-145)
[2022-11-07 14:22] LABS: ESTIMATED GFR 6 mL/min (>=60)
[2022-11-07 14:24] VITALS: BP 201/93
[2022-11-07] MEDS ORDERED: Sodium Polystyrene Sulfonate 15 GM/60 ML Susp 60 ML Bot PO ONE (14:39)
[2022-11-07] MEDS ORDERED: Calcium Gluconate 10% 1 GM/10 ML SDV IVPUSH ONE (14:39)
[2022-11-07] MEDS ORDERED: Glucagon,Human Recombinant 1 MG Vial IM PRN (14:40)
[2022-11-07] MEDS ORDERED: Insulin Regular, Human 100 Units/ML 3 ML Vial IV ONE (14:40)
[2022-11-07] MEDS ORDERED: 50% Dextrose in Water 50 ML Syringe IVPUSH ONE (14:41)
[2022-11-07] MEDS ORDERED: Albuterol 0.083% 2.5 MG/3 ML Neb Soln NEB ONE (14:42)
[2022-11-07 15:58] LABS: CORONAVIRUS COVID-19 NAA NEGATIVE (NEGATIVE); RESPIRATORY SYNCYTIAL VIR NAA NEGATIVE (NEGATIVE)
[2022-11-07 16:14] VITALS: PULSE 87
== END 2022-11-07 16:38 ==
LOC: DL.ED 13:16
DX: J81.0 Acute pulmonary edema (principal); E87.5 Hyperkalemia; I12.0 Hypertensive chronic kidney disease with stage 5 chronic kidney disease or end stage renal disease; E11.22 Type 2 diabetes mellitus with diabetic chronic kidney disease; N18.6 End stage renal disease; D63.1 Anemia in chronic kidney disease; J44.9 Chronic obstructive pulmonary disease, unspecified; Z99.2 Dependence on renal dialysis; Z20.822 Contact with and (suspected) exposure to COVID-19; Z79.82 Long term (current) use of aspirin; Z79.899 Other long term (current) drug therapy
CPT/HCPCS: 0241U; 36415; 71045; 80053; 82947; 83605; 83690; 83735; 83880; 84100; 84484; 85025; 85610; 85730; 87040; 93005; 96365; 96366; 96375; 99285; A9270; J0610; J1815; J1940; J3490; 93010; J7613-GY

== ENCOUNTER 2022-11-22 12:40 | Emergency (ER) | payer MEDICARE, OTHER ==
[2022-11-22 13:55] LABS: ACETAMINOPHEN 0 ug/mL (10-30 (Therapeutic)); ANION GAP 30.7 mEq/L (7-13); CHLORIDE,CL 100 mmol/L (98-107); SODIUM,NA 138 mmol/L (136-145)
[2022-11-22] MEDS ORDERED: Calcium Gluconate 10% 1 GM/10 ML SDV IVPUSH ONE (14:01)
[2022-11-22] MEDS ORDERED: Furosemide 40 MG/4 ML VIAL IVPUSH ONE (14:01)
[2022-11-22] MEDS ORDERED: Albuterol 0.083% 2.5 MG/3 ML Neb Soln NEB ONE (14:01)
[2022-11-22] MEDS ORDERED: 50% Dextrose in Water 50 ML Syringe IVPUSH ONE (14:01)
[2022-11-22] MEDS ORDERED: Sodium Polystyrene Sulfonate 15 GM/60 ML Susp 60 ML Bot PO ONE ×2 (14:03→17:26)
[2022-11-22] MEDS ORDERED: Insulin Regular, Human 100 Units/ML 3 ML Vial IV ONE (14:03)
[2022-11-22] MEDS ORDERED: 50% Dextrose in Water 50 ML Syringe IVPUSH PRN (14:03)
[2022-11-22] MEDS ORDERED: Glucagon,Human Recombinant 1 MG Vial IM PRN (14:03)
[2022-11-22 14:06] LABS: ESTIMATED GFR 4 mL/min (>=60)
[2022-11-22 16:09] VITALS: PULSE 82
[2022-11-22 17:22] LABS: ANION GAP 30.1 mEq/L (7-13); CHLORIDE,CL 102 mmol/L (98-107); SODIUM,NA 140 mmol/L (136-145)
[2022-11-22 17:25] LABS: ESTIMATED GFR 4 mL/min (>=60)
[2022-11-22 17:48] VITALS: BP 106/68
== END 2022-11-22 18:05 ==
LOC: DL.ED 12:40
DX: E87.5 Hyperkalemia (principal); I12.0 Hypertensive chronic kidney disease with stage 5 chronic kidney disease or end stage renal disease; E11.22 Type 2 diabetes mellitus with diabetic chronic kidney disease; N18.6 End stage renal disease; D63.1 Anemia in chronic kidney disease; J44.9 Chronic obstructive pulmonary disease, unspecified; Z99.2 Dependence on renal dialysis; Z91.14 Patient's other noncompliance with medication regimen; Z79.899 Other long term (current) drug therapy
CPT/HCPCS: 36415; 36430; 80048; 80053; 80143; 80179; 80307; 81001; 82140; 82150; 82272; 82947; 83605; 83690; 83735; 83880; 85025; 86850; 86870; 86900; 86901; 86902; 86920; 86922; 93005; 93010; 94640; 96374; 96375; 99285; A9270; J0610; J1815; J1940; P9016; J3490; J7613-GY

== ENCOUNTER 2023-03-28 16:15 | Emergency (ER) | payer MEDICARE, OTHER ==
[2023-03-28 16:32] VITALS: BP 163/114; PULSE 92
[2023-03-28] MEDS: Sodium Chloride 0.9% 10 ML Syringe FLUSH PRN (16:40)
[2023-03-28 17:04] LABS: BASOPHILS PERCENT AUTO 0.1 % (0.0-1.0); EOSINOPHILS PERCENT AUTO 4.4 % (1.0-3.0); HEMOGLOBIN 9.5 g/dL (14.0-18.0); LYMPHOCYTES PERCENT AUTO 14.5 % (20.5-50.1); MEAN CORPUSCULAR HEMOGLOBIN 29.2 pg (27.0-34.0); MEAN CORPUSCULAR HGB CONC 31.7 g/dL (33.0-35.0); MEAN CORPUSCULAR VOLUME 92.3 fL (80-100); PLATELET COUNT,PLT 209 10^3/uL (150-450); RED BLOOD CELL COUNT 3.25 10^6/uL (4.6-6.2); WHITE BLOOD CELL COUNT,WBC 7.7 10^3/uL (5.0-10.0)
[2023-03-28 17:27] LABS: B-TYPE NATRIURETIC PEPTIDE,BNP 3770 pg/ml (0-100); INR 1.1 (0.9-1.2); PROTHROMBIN TIME 11.5 SEC (9.0-12.0); PTT,PARTIAL THROMBOPLSTIN TIME 30.6 SEC (22.0-34.0)
[2023-03-28 17:29] LABS: LACTIC ACID 0.4 mmol/L (0.4-2.0)
[2023-03-28 17:30] LABS: ALANINE AMINOTRANSFERASE,ALT 13 U/L (16-63); ALBUMIN 3.3 g/dL (3.4-5.0); ALKALINE PHOSPHATASE 68 U/L (46-116); ANION GAP 24.6 mEq/L (7-13); ASPARTATE AMNIOTRANSFERASE,AST 11 U/L (15-37); BILIRUBIN TOTAL 0.6 mg/dL (0.2-1.0); BLOOD UREA NITROGEN,BUN 66 mg/dL (7-18); BUN/CREATININE RATIO 6.9 (No establ ref range); C-REACTIVE PROTEIN 3.4 mg/dL (0.0-0.9); CALCIUM 8.6 mg/dL (8.5-10.1); CARBON DIOXIDE,CO2 20 mmol/L (21-32); CHLORIDE,CL 102 mmol/L (98-107); EST CRCL DRUG DOSING (CG) 7.77 mL/min; GLUCOSE RANDOM 93 mg/dL (70-99); MAGNESIUM 2.8 mg/dL (1.8-2.4); PHOSPHORUS 4.8 mg/dL (2.6-4.7); PROTEIN TOTAL,TP 8.3 g/dL (6.4-8.2); SODIUM,NA 140 mmol/L (136-145)
[2023-03-28 17:37] LABS: A/G RATIO 0.66; CREATININE 9.57 mg/dL (0.70-1.30); ESTIMATED GFR 6 mL/min (>=60); POTASSIUM,K 6.6 mmol/L (3.5-5.1)
[2023-03-28] MEDS: Furosemide 100 MG/10 ML SDV IVPUSH ONE (18:13)
[2023-03-28] MEDS: Calcium Gluconate 10% 1 GM/10 ML SDV IVPUSH ONE (18:13)
[2023-03-28] MEDS: Albuterol 0.083% 2.5 MG/3 ML Neb Soln NEB ONE ×2 (18:15)
[2023-03-28] MEDS: Sodium Polystyrene Sulfonate 15 GM/60 ML Susp 60 ML Bot PO ONE (18:17)
== END 2023-03-28 19:02 ==
LOC: DL.ED 16:15
DX: J81.0 Acute pulmonary edema (principal); N17.9 Acute kidney failure, unspecified; J90 Pleural effusion, not elsewhere classified; E87.5 Hyperkalemia; R09.02 Hypoxemia; I10 Essential (primary) hypertension; J44.9 Chronic obstructive pulmonary disease, unspecified; E11.9 Type 2 diabetes mellitus without complications; K21.9 Gastro-esophageal reflux disease without esophagitis; Z79.899 Other long term (current) drug therapy
CPT/HCPCS: 36415; 71045; 80053; 83605; 83735; 83880; 84100; 84145; 84484; 85025; 85610; 85730; 86140; 87040; 93005; 93010; 96374; 96375; 99285; 99285-25; A9270-GY; J0612; J1940; J3490; J7613-GY

== ENCOUNTER 2023-05-02 06:17 | Emergency (ER) | payer MEDICARE, OTHER ==
[2023-05-02 06:44] LABS: BASOPHILS PERCENT AUTO 0.2 % (0.0-1.0); EOSINOPHILS PERCENT AUTO 3.6 % (1.0-3.0); HEMATOCRIT 26.9 % (40.0-54.0); HEMOGLOBIN 8.5 g/dL (14.0-18.0); LYMPHOCYTES PERCENT AUTO 11.5 % (20.5-50.1); MEAN CORPUSCULAR HEMOGLOBIN 29.9 pg (27.0-34.0); MEAN CORPUSCULAR HGB CONC 31.6 g/dL (33.0-35.0); MEAN CORPUSCULAR VOLUME 94.7 fL (80-100); MONOCYTES PERCENT AUTO 3.7 % (2-8); PLATELET COUNT,PLT 183 10^3/uL (150-450); RED BLOOD CELL COUNT 2.84 10^6/uL (4.6-6.2); WHITE BLOOD CELL COUNT,WBC 6.4 10^3/uL (5.0-10.0)
[2023-05-02 07:05] LABS: O2 DELIVERY DEVICE ROOM AIR
[2023-05-02 07:06] LABS: ALLEN TEST positive; BASE EXCESS ARTERIAL -4 mmol/L ((-2)-(+3)); BICARBONATE,ARTERIAL 20.4 mmol/L (22-26); O2 SATURATION ARTERIAL 91 % (95-100); PCO2 ARTERIAL 38 mmHg (35-45); PH,ARTERIAL 7.35 (7.35-7.45); PO2 ARTERIAL 70 mmHg (70-100)
[2023-05-02 07:06] LABS: A/G RATIO 0.7; ALANINE AMINOTRANSFERASE,ALT 6 U/L (16-63); ALBUMIN 3.6 g/dL (3.4-5.0); ALKALINE PHOSPHATASE 71 U/L (46-116); ASPARTATE AMNIOTRANSFERASE,AST 17 U/L (15-37); BILIRUBIN TOTAL 0.5 mg/dL (0.2-1.0); BLOOD UREA NITROGEN,BUN 62 mg/dL (7-18); BUN/CREATININE RATIO 7.1 (No establ ref range); C-REACTIVE PROTEIN 3.3 mg/dL (0.0-0.9); CALCIUM 8.4 mg/dL (8.5-10.1); CARBON DIOXIDE,CO2 23 mmol/L (21-32); EST CRCL DRUG DOSING (CG) 8.44 mL/min; GLUCOSE RANDOM 94 mg/dL (70-99); MAGNESIUM 2.6 mg/dL (1.8-2.4); PHOSPHORUS 5.9 mg/dL (2.6-4.7); PROTEIN TOTAL,TP 8.7 g/dL (6.4-8.2)
[2023-05-02] MEDS ORDERED: Acetaminophen 500 MG Tab PO ONE (07:10)
[2023-05-02 07:15] LABS: ESTIMATED GFR 6 mL/min (>=60)
[2023-05-02 07:16] LABS: CHLORIDE,CL 99 mmol/L (98-107); SODIUM,NA 136 mmol/L (136-145)
[2023-05-02 07:22] LABS: INR 1.1 (0.9-1.2); PROTHROMBIN TIME 10.9 SEC (9.0-12.0); PTT,PARTIAL THROMBOPLSTIN TIME 30.5 SEC (22.0-34.0)
[2023-05-02] MEDS ORDERED: Furosemide 40 MG/4 ML VIAL IVPUSH ONE (07:30)
[2023-05-02 09:21] VITALS: BP 185/96; PULSE 70
== END 2023-05-02 10:26 | disposition home or self-care (01) ==
LOC: DL.ED 06:17
DX: J81.0 Acute pulmonary edema (principal); I12.0 Hypertensive chronic kidney disease with stage 5 chronic kidney disease or end stage renal disease; E11.22 Type 2 diabetes mellitus with diabetic chronic kidney disease; N18.6 End stage renal disease; J44.9 Chronic obstructive pulmonary disease, unspecified; Z79.82 Long term (current) use of aspirin; Z99.2 Dependence on renal dialysis; Z20.822 Contact with and (suspected) exposure to COVID-19
CPT/HCPCS: 36415; 36600; 71045; 80053; 82803; 83735; 83880; 84100; 84145; 84484; 85025; 85610; 85730; 86140; 87040; 93005; 94660; 96374; 99285-25; A9270-GY; J1940; U0002

== ENCOUNTER 2023-07-24 14:08 | Emergency (ER) | payer MEDICARE, OTHER ==
[2023-07-24] MEDS: Sodium Chloride 0.9% 10 ML Syringe FLUSH PRN ×2 (14:16→15:22)
[2023-07-24] MEDS ORDERED: Furosemide 40 MG/4 ML VIAL IVPUSH ONE (14:20)
[2023-07-24 14:24] LABS: BASOPHILS PERCENT AUTO 0.1 % (0.0-1.0); HEMATOCRIT 34.5 % (40.0-54.0); HEMOGLOBIN 10.9 g/dL (14.0-18.0); LYMPHOCYTES PERCENT AUTO 5.8 % (20.5-50.1); MEAN CORPUSCULAR HEMOGLOBIN 30.1 pg (27.0-34.0); MEAN CORPUSCULAR HGB CONC 31.6 g/dL (33.0-35.0); MEAN CORPUSCULAR VOLUME 95.3 fL (80-100); MONOCYTES PERCENT AUTO 4.5 % (2-8); NEUTROPHILS PERCENT AUTO 88.6 % (42.2-75.2); PLATELET COUNT,PLT 105 10^3/uL (150-450); RED BLOOD CELL COUNT 3.62 10^6/uL (4.6-6.2); WHITE BLOOD CELL COUNT,WBC 7.7 10^3/uL (5.0-10.0)
[2023-07-24 14:36] VITALS: BP 210/100
[2023-07-24 14:44] LABS: INR 1.1 (0.9-1.2); PROTHROMBIN TIME 11.5 SEC (9.0-12.0); PTT,PARTIAL THROMBOPLSTIN TIME 29.6 SEC (22.0-34.0)
[2023-07-24 14:45] LABS: B-TYPE NATRIURETIC PEPTIDE,BNP > 5000 pg/ml (0-100)
[2023-07-24 14:47] LABS: A/G RATIO 0.7; ALANINE AMINOTRANSFERASE,ALT 29 U/L (16-63); ALBUMIN 3.9 g/dL (3.4-5.0); ALKALINE PHOSPHATASE 75 U/L (46-116); ANION GAP 28.2 mEq/L (7-13); ASPARTATE AMNIOTRANSFERASE,AST 20 U/L (15-37); BILIRUBIN TOTAL 0.7 mg/dL (0.2-1.0); BLOOD UREA NITROGEN,BUN 121 mg/dL (7-18); BUN/CREATININE RATIO 9.5 (No establ ref range); C-REACTIVE PROTEIN 5.13 ng/dL (<=0.50); CALCIUM 8.1 mg/dL (8.5-10.1); CARBON DIOXIDE,CO2 18 mmol/L (21-32); CHLORIDE,CL 99 mmol/L (98-107); CREATININE 12.68 mg/dL (0.70-1.30); EST CRCL DRUG DOSING (CG) 5.79 mL/min; GLUCOSE RANDOM 98 mg/dL (70-99); MAGNESIUM 3.1 mg/dL (1.8-2.4); PROTEIN TOTAL,TP 9.3 g/dL (6.4-8.2); SODIUM,NA 138 mmol/L (136-145)
[2023-07-24 14:48] LABS: LACTIC ACID 1.1 mmol/L (0.4-2.0)
[2023-07-24 14:49] LABS: ESTIMATED GFR 4 mL/min (>=60); POTASSIUM,K 7.2 mmol/L (3.5-5.1)
[2023-07-24] MEDS ORDERED: Albuterol 0.083% 2.5 MG/3 ML Neb Soln NEB ONE (14:50)
[2023-07-24] MEDS ORDERED: Calcium Gluconate 10% 1 GM/10 ML SDV IVPUSH ONE (14:51)
[2023-07-24] MEDS ORDERED: 50% Dextrose in Water 50 ML Syringe IVPUSH ONE (14:51)
[2023-07-24] MEDS ORDERED: 50% Dextrose in Water 50 ML Syringe IVPUSH PRN (14:51)
[2023-07-24] MEDS ORDERED: Insulin Regular, Human 100 Units/ML 3 ML Vial IV ONE (14:51)
[2023-07-24] MEDS ORDERED: Glucagon,Human Recombinant 1 MG Vial IM PRN (14:51)
[2023-07-24 15:04] LABS: CORONAVIRUS COVID-19 NAA NEGATIVE (NEGATIVE); INFLUENZA A NAA NEGATIVE (NEGATIVE); INFLUENZA B NAA NEGATIVE (NEGATIVE); RESPIRATORY SYNCYTIAL VIR NAA NEGATIVE (NEGATIVE)
[2023-07-24] MEDS ORDERED: Sodium Polystyrene Sulfonate 15 GM/60 ML Susp 60 ML Bot PO ONE (15:23)
[2023-07-24 15:32] VITALS: PULSE 71
== END 2023-07-24 16:15 ==
LOC: DL.ED 14:08
DX: I13.2 Hypertensive heart and chronic kidney disease with heart failure and with stage 5 chronic kidney disease, or end stage renal disease (principal); I50.9 Heart failure, unspecified; N18.6 End stage renal disease; J18.9 Pneumonia, unspecified organism; E87.5 Hyperkalemia; R94.4 Abnormal results of kidney function studies; J45.909 Unspecified asthma, uncomplicated; I10 Essential (primary) hypertension; E11.9 Type 2 diabetes mellitus without complications; Z79.899 Other long term (current) drug therapy; Z91.198 Patient's noncompliance with other medical treatment and regimen for other reason; Z20.822 Contact with and (suspected) exposure to COVID-19
CPT/HCPCS: 0241U; 36415; 71045; 80053; 82947; 83605; 83735; 83880; 84145; 84484; 85025; 85610; 85730; 86140; 93005; 93010; 94660; 96374; 96375; 99285; 99285-25; A9270-GY; J0612; J1815-GY; J1940; J3490; J7613-GY

== ENCOUNTER 2023-09-30 09:20 | Emergency (ER) | payer MEDICARE, OTHER ==
[~2023-09-30 09:20] MED LIST changes: -Acetaminophen 325 MG Tab ONE; -Acetaminophen 325 MG Tab PO ONE; +Albuterol/Ipratropium 3.0-0.5 MG/3 ML Neb Soln ONE; +Sodium Chloride 0.9% 10 ML Syringe FLUSH PRN
[2023-09-30 09:21] LABS: BASOPHILS PERCENT AUTO 0.1 % (0.0-1.0); EOSINOPHILS PERCENT AUTO 1.5 % (1.0-3.0); HEMATOCRIT 33.8 % (40.0-54.0); HEMOGLOBIN 10.9 g/dL (14.0-18.0); LYMPHOCYTES PERCENT AUTO 13.8 % (20.5-50.1); MEAN CORPUSCULAR HEMOGLOBIN 32.6 pg (27.0-34.0); MEAN CORPUSCULAR HGB CONC 32.2 g/dL (33.0-35.0); MEAN CORPUSCULAR VOLUME 101.2 fL (80-100); MONOCYTES PERCENT AUTO 4.1 % (2-8); NEUTROPHILS PERCENT AUTO 80.5 % (42.2-75.2); PLATELET COUNT,PLT 179 10^3/uL (150-450); RED BLOOD CELL COUNT 3.34 10^6/uL (4.6-6.2); WHITE BLOOD CELL COUNT,WBC 8.2 10^3/uL (5.0-10.0)
[2023-09-30 09:24] VITALS: BP 221/100; PULSE 91
[2023-09-30 09:41] LABS: A/G RATIO 0.8; ALBUMIN 4.1 g/dL (3.4-5.0); ANION GAP 23.2 mEq/L (7-13); BILIRUBIN TOTAL 0.7 mg/dL (0.2-1.0); BUN/CREATININE RATIO 7.6 (No establ ref range); CALCIUM 8.5 mg/dL (8.5-10.1); EST CRCL DRUG DOSING (CG) 7.15 mL/min
[2023-09-30 09:42] LABS: POTASSIUM,K 7.2 mmol/L (3.5-5.1)
[2023-09-30 09:43] LABS: CREATININE 10.63 mg/dL (0.70-1.30)
[2023-09-30] MEDS ORDERED: Calcium Gluconate 10% 1 GM/10 ML SDV IVPUSH ONE (09:54)
[2023-09-30] MEDS ORDERED: 50% Dextrose in Water 50 ML Syringe IVPUSH PRN (09:55)
[2023-09-30] MEDS ORDERED: Insulin Regular, Human 100 Units/ML 3 ML Vial IV ONE (09:55)
[2023-09-30] MEDS ORDERED: Albuterol 0.083% 2.5 MG/3 ML Neb Soln NEB ONE (09:57)
[2023-09-30] MEDS ORDERED: Furosemide 100 MG/10 ML SDV IVPUSH ONE (09:58)
== END 2023-09-30 11:17 ==
LOC: DL.ED 09:20
DX: E87.5 Hyperkalemia (principal); J96.01 Acute respiratory failure with hypoxia; I13.0 Hypertensive heart and chronic kidney disease with heart failure and stage 1 through stage 4 chronic kidney disease, or unspecified chronic kidney disease; I50.9 Heart failure, unspecified; J44.9 Chronic obstructive pulmonary disease, unspecified; N18.9 Chronic kidney disease, unspecified; E11.9 Type 2 diabetes mellitus without complications; Z95.1 Presence of aortocoronary bypass graft; Z79.899 Other long term (current) drug therapy
CPT/HCPCS: 36415; 71045; 80053; 80307; 82947; 83605; 83880; 84132; 84484; 85025; 93005; 93010; 94640; 96374; 96375; 99285; J0612; J1815; J1940; J3490; J7613-GY; J7620-GY

== ENCOUNTER 2023-11-01 23:21 | Emergency (ER) | payer MEDICARE, OTHER ==
[2023-11-02 00:02] LABS: BASOPHILS PERCENT AUTO 0.2 % (0.0-1.0); EOSINOPHILS PERCENT AUTO 6.3 % (1.0-3.0); HEMATOCRIT 30.9 % (40.0-54.0); LYMPHOCYTES PERCENT AUTO 13.7 % (20.5-50.1); MEAN CORPUSCULAR HEMOGLOBIN 31.9 pg (27.0-34.0); MEAN CORPUSCULAR HGB CONC 32.4 g/dL (33.0-35.0); MEAN CORPUSCULAR VOLUME 98.7 fL (80-100); MONOCYTES PERCENT AUTO 14.5 % (2-8); NEUTROPHILS PERCENT AUTO 65.3 % (42.2-75.2); PLATELET COUNT,PLT 186 10^3/uL (150-450); RED BLOOD CELL COUNT 3.13 10^6/uL (4.6-6.2); WHITE BLOOD CELL COUNT,WBC 5.1 10^3/uL (5.0-10.0)
[2023-11-02 00:13] LABS: ALBUMIN 3.3 g/dL (3.4-5.0); ANION GAP 15.3 mEq/L (7-13); BILIRUBIN TOTAL 0.5 mg/dL (0.2-1.0); BUN/CREATININE RATIO 6.4 (No establ ref range); CALCIUM 8.7 mg/dL (8.5-10.1); EST CRCL DRUG DOSING (CG) 14.18 mL/min; POTASSIUM,K 4.3 mmol/L (3.5-5.1); PROTEIN TOTAL,TP 7.9 g/dL (6.4-8.2)
[2023-11-02 00:14] LABS: A/G RATIO 0.72; CREATININE 5.18 mg/dL (0.70-1.30)
[2023-11-02 00:21] VITALS: BP 196/95; PULSE 80
[2023-11-02] MEDS: Furosemide 100 MG/10 ML SDV IVPUSH ONE (01:07)
== END 2023-11-02 01:13 | disposition home or self-care (01) ==
LOC: DL.ED 23:21
DX: J81.1 Chronic pulmonary edema (principal); I13.0 Hypertensive heart and chronic kidney disease with heart failure and stage 1 through stage 4 chronic kidney disease, or unspecified chronic kidney disease; I50.9 Heart failure, unspecified; N18.9 Chronic kidney disease, unspecified; E11.22 Type 2 diabetes mellitus with diabetic chronic kidney disease; J44.9 Chronic obstructive pulmonary disease, unspecified; K21.9 Gastro-esophageal reflux disease without esophagitis; Z79.899 Other long term (current) drug therapy
CPT/HCPCS: 36415; 71046; 80053; 83880; 84484; 85025; 93005; 93010; 96374; 99284; 99285; J1940

== ENCOUNTER 2023-11-25 19:07 | Emergency (ER) | payer MEDICARE, OTHER ==
[2023-11-25 20:10] VITALS: BP 173/75; PULSE 73
[2023-11-25 20:48] LABS: BASOPHILS PERCENT AUTO 0.2 % (0.0-1.0); EOSINOPHILS PERCENT AUTO 7.9 % (1.0-3.0); HEMATOCRIT 28.3 % (40.0-54.0); HEMOGLOBIN 8.8 g/dL (14.0-18.0); MEAN CORPUSCULAR HEMOGLOBIN 30.3 pg (27.0-34.0); MEAN CORPUSCULAR HGB CONC 31.1 g/dL (33.0-35.0); MEAN CORPUSCULAR VOLUME 97.6 fL (80-100); MONOCYTES PERCENT AUTO 7.5 % (2-8); NEUTROPHILS PERCENT AUTO 74.4 % (42.2-75.2); PLATELET COUNT,PLT 195 10^3/uL (150-450); WHITE BLOOD CELL COUNT,WBC 5.3 10^3/uL (5.0-10.0)
[2023-11-25 21:07] LABS: ALBUMIN 3.3 g/dL (3.4-5.0); ANION GAP 13.7 mEq/L (7-13); BILIRUBIN TOTAL 0.7 mg/dL (0.2-1.0); BUN/CREATININE RATIO 6.7 (No establ ref range); CALCIUM 8.7 mg/dL (8.5-10.1); CREATININE 5.69 mg/dL (0.70-1.30); EST CRCL DRUG DOSING (CG) 12.91 mL/min; POTASSIUM,K 4.7 mmol/L (3.5-5.1)
[2023-11-25 21:09] LABS: A/G RATIO 0.7
== END 2023-11-25 22:04 | disposition home or self-care (01) ==
LOC: DL.ED 19:07
DX: K52.1 Toxic gastroenteritis and colitis (principal); T47.4X5A Adverse effect of other laxatives, initial encounter; K59.09 Other constipation; I10 Essential (primary) hypertension; J44.9 Chronic obstructive pulmonary disease, unspecified; E11.9 Type 2 diabetes mellitus without complications; Z79.82 Long term (current) use of aspirin; Z79.899 Other long term (current) drug therapy
CPT/HCPCS: 36415; 80053; 83735; 85025; 99283; 99284

== ENCOUNTER 2023-12-04 17:11 | Emergency (ER) | payer MEDICARE, OTHER ==
[2023-12-04 17:33] LABS: BASOPHILS PERCENT AUTO 0.1 % (0.0-1.0); EOSINOPHILS PERCENT AUTO 5.5 % (1.0-3.0); HEMATOCRIT 31.8 % (40.0-54.0); LYMPHOCYTES PERCENT AUTO 10.2 % (20.5-50.1); MEAN CORPUSCULAR HEMOGLOBIN 30.8 pg (27.0-34.0); MEAN CORPUSCULAR HGB CONC 31.4 g/dL (33.0-35.0); MEAN CORPUSCULAR VOLUME 97.8 fL (80-100); MONOCYTES PERCENT AUTO 6.5 % (2-8); NEUTROPHILS PERCENT AUTO 77.7 % (42.2-75.2); PLATELET COUNT,PLT 206 10^3/uL (150-450); RED BLOOD CELL COUNT 3.25 10^6/uL (4.6-6.2)
[2023-12-04 17:51] LABS: INR 1.2 (0.9-1.2); PROTHROMBIN TIME 12.4 SEC (9.0-12.0); PTT,PARTIAL THROMBOPLSTIN TIME 26.9 SEC (22.0-34.0)
[2023-12-04] MEDS: Furosemide 100 MG/10 ML SDV IVPUSH ONE (17:52)
[2023-12-04 17:55] LABS: A/G RATIO 0.7; ALBUMIN 3.8 g/dL (3.4-5.0); ANION GAP 24.6 mEq/L (7-13); BILIRUBIN TOTAL 0.6 mg/dL (0.2-1.0); BUN/CREATININE RATIO 7.6 (No establ ref range); CALCIUM 8.7 mg/dL (8.5-10.1); EST CRCL DRUG DOSING (CG) 6.17 mL/min; MAGNESIUM 3.8 mg/dL (1.8-2.4); POTASSIUM,K 5.6 mmol/L (3.5-5.1); PROTEIN TOTAL,TP 9.1 g/dL (6.4-8.2)
[2023-12-04] MEDS: Nitroglycerin/D5W 25 MG/250 ML BOTTLE IV SCH (17:56)
[2023-12-04] MEDS: Sodium Chloride 0.9% 10 ML Syringe FLUSH PRN (17:56)
[2023-12-04 17:57] LABS: LACTIC ACID 0.9 mmol/L (0.4-2.0)
[2023-12-04 17:58] LABS: CREATININE 11.9 mg/dL (0.70-1.30); PHOSPHORUS 8.8 mg/dL (2.6-4.7)
[2023-12-04 19:00] VITALS: BP 194/90; PULSE 69
== END 2023-12-04 19:20 ==
LOC: DL.ED 17:11
DX: I50.1 Left ventricular failure, unspecified (principal); I13.2 Hypertensive heart and chronic kidney disease with heart failure and with stage 5 chronic kidney disease, or end stage renal disease; N18.6 End stage renal disease; J44.89 Other specified chronic obstructive pulmonary disease; E11.9 Type 2 diabetes mellitus without complications; K21.9 Gastro-esophageal reflux disease without esophagitis; Z79.899 Other long term (current) drug therapy
CPT/HCPCS: 36415; 71045; 80053; 83605; 83735; 83880; 84100; 84145; 84484; 85025; 85610; 85730; 93005; 93010; 96365; 96375; 99285; J1940; J2305; J3490

== ENCOUNTER 2023-12-29 06:01 | Emergency (ER) | payer MEDICARE, OTHER ==
[2023-12-29] MEDS: Morphine 2 MG/ML SYRINGE ONE ×2 (06:16→06:30)
[2023-12-29] MEDS: Furosemide 40 MG/4 ML VIAL IVPUSH ONE (06:18)
[2023-12-29 06:20] LABS: WHITE BLOOD CELL COUNT,WBC 9.5 10^3/uL (5.0-10.0)
[2023-12-29 06:21] LABS: BASOPHILS PERCENT AUTO 0.1 % (0.0-1.0); EOSINOPHILS PERCENT AUTO 2.7 % (1.0-3.0); HEMATOCRIT 36.7 % (40.0-54.0); HEMOGLOBIN 11.4 g/dL (14.0-18.0); LYMPHOCYTES PERCENT AUTO 11.6 % (20.5-50.1); MEAN CORPUSCULAR HGB CONC 31.1 g/dL (33.0-35.0); MEAN CORPUSCULAR VOLUME 96.6 fL (80-100); MONOCYTES PERCENT AUTO 5.3 % (2-8); NEUTROPHILS PERCENT AUTO 80.3 % (42.2-75.2); PLATELET COUNT,PLT 173 10^3/uL (150-450)
[2023-12-29 06:27] VITALS: BP 202/95; PULSE 86
[2023-12-29] MEDS: Morphine 4 MG/ML Syringe IVPUSH ONE (06:32)
[2023-12-29] MEDS: Furosemide 100 MG/10 ML SDV ONE (06:33)
[2023-12-29 06:42] LABS: A/G RATIO 0.7; ALANINE AMINOTRANSFERASE,ALT 13 U/L (16-63); ALBUMIN 3.6 g/dL (3.4-5.0); ALKALINE PHOSPHATASE 76 U/L (46-116); ASPARTATE AMNIOTRANSFERASE,AST 18 U/L (15-37); BILIRUBIN TOTAL 0.6 mg/dL (0.2-1.0); BLOOD UREA NITROGEN,BUN 70 mg/dL (7-18); BUN/CREATININE RATIO 8.2 (No establ ref range); CALCIUM 8.5 mg/dL (8.5-10.1); CARBON DIOXIDE,CO2 24 mmol/L (21-32); CHLORIDE,CL 100 mmol/L (98-107); CREATININE 8.54 mg/dL (0.70-1.30); GLUCOSE RANDOM 128 mg/dL (70-99); PROTEIN TOTAL,TP 8.6 g/dL (6.4-8.2); SODIUM,NA 139 mmol/L (136-145)
[2023-12-29 06:43] LABS: ESTIMATED GFR 7 mL/min (>=60)
[2023-12-29 07:14] LABS: BASE EXCESS VENOUS -4.2 mmol/l ((-2)-(+3)); BICARBONATE,VENOUS 23 mmol/l (19-25); O2 DELIVERY DEVICE HI FLOW NASAL CANNU; O2 SATURATION VENOUS 53.8 % (60-80); PCO2 VENOUS 54 mmHg (41-51); PH,VENOUS 7.25 (7.31-7.41); PO2 VENOUS 40 mmHg (35-42)
[2023-12-29] MEDS: Sodium Chloride 0.9% 10 ML Syringe FLUSH PRN (07:16)
== END 2023-12-29 07:55 ==
LOC: DL.ED 06:01
DX: J81.0 Acute pulmonary edema (principal); E87.70 Fluid overload, unspecified; I10 Essential (primary) hypertension; J45.909 Unspecified asthma, uncomplicated; E11.9 Type 2 diabetes mellitus without complications; Z79.82 Long term (current) use of aspirin; Z79.899 Other long term (current) drug therapy
CPT/HCPCS: 36415; 71045; 80053; 82803; 84484; 85025; 93005; 93010; 96374; 96375; 99284; 99285-25; J1940; J2270; J3490

== ENCOUNTER 2024-01-08 20:49 | Emergency (ER) | payer MEDICAID, MEDICARE, OTHER ==
[2024-01-08] MEDS: Nitroglycerin/D5W 25 MG/250 ML BOTTLE IV SCH (21:14)
[2024-01-08 21:19] LABS: BASOPHILS PERCENT AUTO 0.2 % (0.0-1.0); EOSINOPHILS PERCENT AUTO 3.3 % (1.0-3.0); HEMATOCRIT 38.8 % (40.0-54.0); HEMOGLOBIN 12.2 g/dL (14.0-18.0); LYMPHOCYTES PERCENT AUTO 7.9 % (20.5-50.1); MEAN CORPUSCULAR HEMOGLOBIN 29.6 pg (27.0-34.0); MEAN CORPUSCULAR HGB CONC 31.4 g/dL (33.0-35.0); MEAN CORPUSCULAR VOLUME 94.2 fL (80-100); MONOCYTES PERCENT AUTO 4.8 % (2-8); NEUTROPHILS PERCENT AUTO 83.8 % (42.2-75.2); PLATELET COUNT,PLT 203 10^3/uL (150-450); RED BLOOD CELL COUNT 4.12 10^6/uL (4.6-6.2); WHITE BLOOD CELL COUNT,WBC 8.6 10^3/uL (5.0-10.0)
[2024-01-08 21:38] LABS: A/G RATIO 0.7; ALANINE AMINOTRANSFERASE,ALT 15 U/L (16-63); ALBUMIN 3.8 g/dL (3.4-5.0); ALKALINE PHOSPHATASE 84 U/L (46-116); ANION GAP 22.4 mEq/L (7-13); ASPARTATE AMNIOTRANSFERASE,AST 24 U/L (15-37); BILIRUBIN TOTAL 0.5 mg/dL (0.2-1.0); BLOOD UREA NITROGEN,BUN 79 mg/dL (7-18); BUN/CREATININE RATIO 7.3 (No establ ref range); CALCIUM 8.4 mg/dL (8.5-10.1); CARBON DIOXIDE,CO2 23 mmol/L (21-32); CHLORIDE,CL 101 mmol/L (98-107); CREATININE 10.78 mg/dL (0.70-1.30); ESTIMATED GFR 5 mL/min (>=60); GLUCOSE RANDOM 93 mg/dL (70-99); MAGNESIUM 2.9 mg/dL (1.8-2.4); PHOSPHORUS 8.5 mg/dL (2.6-4.7); POTASSIUM,K 5.4 mmol/L (3.5-5.1); PROTEIN TOTAL,TP 8.9 g/dL (6.4-8.2); SODIUM,NA 141 mmol/L (136-145)
[2024-01-08 21:39] LABS: B-TYPE NATRIURETIC PEPTIDE,BNP 2740 pg/ml (0-100)
[2024-01-08 21:51] VITALS: PULSE 82
[2024-01-08 22:07] VITALS: BP 195/104
== END 2024-01-08 22:40 ==
LOC: DL.ED 20:49
DX: E87.70 Fluid overload, unspecified (principal); I11.0 Hypertensive heart disease with heart failure; I50.9 Heart failure, unspecified; J44.9 Chronic obstructive pulmonary disease, unspecified; K21.9 Gastro-esophageal reflux disease without esophagitis; E11.9 Type 2 diabetes mellitus without complications; Z95.1 Presence of aortocoronary bypass graft; Z79.82 Long term (current) use of aspirin; Z79.899 Other long term (current) drug therapy
CPT/HCPCS: 36415; 71045; 80053; 83735; 83880; 84100; 85025; 93005; 94660; 96365; 99285; J2305; 93010

== ENCOUNTER 2024-01-17 09:20 | Emergency (ER) | payer MEDICARE, OTHER ==
[2024-01-17] MEDS: Nitroglycerin/D5W 25 MG/250 ML BOTTLE IV SCH (09:37)
[2024-01-17] MEDS: Albuterol/Ipratropium 3.0-0.5 MG/3 ML Neb Soln NEB ONE (09:38)
[2024-01-17 09:45] LABS: BASOPHILS PERCENT AUTO 0.2 % (0.0-1.0); EOSINOPHILS PERCENT AUTO 2.8 % (1.0-3.0); HEMATOCRIT 37.4 % (40.0-54.0); HEMOGLOBIN 11.7 g/dL (14.0-18.0); LYMPHOCYTES PERCENT AUTO 16.5 % (20.5-50.1); MEAN CORPUSCULAR HEMOGLOBIN 29.5 pg (27.0-34.0); MEAN CORPUSCULAR HGB CONC 31.3 g/dL (33.0-35.0); MEAN CORPUSCULAR VOLUME 94.4 fL (80-100); MONOCYTES PERCENT AUTO 5.1 % (2-8); NEUTROPHILS PERCENT AUTO 75.4 % (42.2-75.2); PLATELET COUNT,PLT 209 10^3/uL (150-450); RED BLOOD CELL COUNT 3.96 10^6/uL (4.6-6.2); WHITE BLOOD CELL COUNT,WBC 8.2 10^3/uL (5.0-10.0)
[2024-01-17] MEDS: Furosemide 40 MG/4 ML VIAL IVPUSH ONE (09:52)
[2024-01-17] MEDS: LORazepam 2 MG/ML SDV IM ONE (09:52)
[2024-01-17] MEDS: Nitroglycerin/D5W 25 MG/250 ML BOTTLE ONE (09:53)
[2024-01-17] MEDS: Albuterol/Ipratropium 3.0-0.5 MG/3 ML Neb Soln ONE (09:53)
[2024-01-17 10:08] LABS: A/G RATIO 0.7; ALBUMIN 3.8 g/dL (3.4-5.0); ANION GAP 21.4 mEq/L (7-13); BILIRUBIN TOTAL 0.6 mg/dL (0.2-1.0); BUN/CREATININE RATIO 6.9 (No establ ref range); CALCIUM 8.7 mg/dL (8.5-10.1); EST CRCL DRUG DOSING (CG) 6.9 mL/min; PROTEIN TOTAL,TP 9.4 g/dL (6.4-8.2)
[2024-01-17 10:10] LABS: CREATININE 11.76 mg/dL (0.70-1.30)
[2024-01-17 10:53] LABS: POTASSIUM,K 6.4 mmol/L (3.5-5.1)
[2024-01-17] MEDS ORDERED: Glucagon,Human Recombinant 1 MG Vial IM PRN (11:09)
[2024-01-17] MEDS: Insulin Regular, Human 100 Units/ML 3 ML Vial IV ONE (12:03)
[2024-01-17] MEDS: Calcium Gluconate 10% 1 GM/10 ML SDV IVPUSH ONE ×2 (12:05→13:09)
[2024-01-17 12:07] VITALS: BP 167/80; PULSE 71
[2024-01-17] MEDS: 50% Dextrose in Water 50 ML Syringe IVPUSH PRN (12:24)
[2024-01-17] MEDS: Albuterol 0.083% 2.5 MG/3 ML Neb Soln NEB ONE (12:37)
[2024-01-17] MEDS: Sodium Zirconium Cyclosilicate 5 GM Packet PO ONE (12:48)
[2024-01-17] MEDS: Calcium Gluconate 10% 1 GM/10 ML SDV ONE (13:09)
== END 2024-01-17 13:05 ==
LOC: DL.ED 09:20
DX: J81.0 Acute pulmonary edema (principal); I10 Essential (primary) hypertension; J44.89 Other specified chronic obstructive pulmonary disease; K21.9 Gastro-esophageal reflux disease without esophagitis; E11.9 Type 2 diabetes mellitus without complications; Z79.899 Other long term (current) drug therapy; Z95.1 Presence of aortocoronary bypass graft
CPT/HCPCS: 36415; 71045; 80053; 82947; 83880; 84132; 84484; 85025; 93005; 93010; 94640; 94660; 96365; 96366; 96372; 96375; 96376; 99285; J0612; J1815; J1940; J2060; J2305; J3490; J7613-GY; J7620-GY

== ENCOUNTER 2024-01-30 03:57 | Emergency (ER) | payer MEDICARE, OTHER ==
[2024-01-30] MEDS: LORazepam 1 MG Tab PO ONE (04:27)
[2024-01-30 04:36] VITALS: BP 213/107; PULSE 103
[2024-01-30] MEDS ORDERED: Nitroglycerin 0.4 MG Tab.SL SL ONE (06:41)
[2024-01-30 06:59] LABS: BICARBONATE,VENOUS 23 mmol/l (19-25); O2 SATURATION VENOUS 79.3 % (60-80); PO2 VENOUS 56 mmHg (35-42)
[2024-01-30 07:00] LABS: O2 DELIVERY DEVICE BIPAP
[2024-01-30] MEDS: Sodium Chloride 0.9% 10 ML Syringe FLUSH PRN (07:00)
[2024-01-30 07:02] LABS: PCO2 VENOUS 61 mmHg (41-51)
[2024-01-30 07:05] LABS: BASOPHILS PERCENT AUTO 0.1 % (0.0-1.0); EOSINOPHILS PERCENT AUTO 0.9 % (1.0-3.0); HEMATOCRIT 34.1 % (40.0-54.0); HEMOGLOBIN 10.9 g/dL (14.0-18.0); LYMPHOCYTES PERCENT AUTO 4.8 % (20.5-50.1); MEAN CORPUSCULAR HEMOGLOBIN 29.8 pg (27.0-34.0); MEAN CORPUSCULAR VOLUME 93.2 fL (80-100); MONOCYTES PERCENT AUTO 4.2 % (2-8); PLATELET COUNT,PLT 190 10^3/uL (150-450); RED BLOOD CELL COUNT 3.66 10^6/uL (4.6-6.2); WHITE BLOOD CELL COUNT,WBC 8.8 10^3/uL (5.0-10.0)
[2024-01-30 07:22] LABS: A/G RATIO 0.7; ALBUMIN 3.6 g/dL (3.4-5.0); ANION GAP 23.4 mEq/L (7-13); BILIRUBIN TOTAL 0.6 mg/dL (0.2-1.0); BUN/CREATININE RATIO 6.7 (No establ ref range); CALCIUM 8.6 mg/dL (8.5-10.1); CREATININE 9.95 mg/dL (0.70-1.30); EST CRCL DRUG DOSING (CG) 7.38 mL/min; POTASSIUM,K 5.4 mmol/L (3.5-5.1); PROTEIN TOTAL,TP 8.6 g/dL (6.4-8.2)
[2024-01-30 07:26] LABS: MAGNESIUM 2.4 mg/dL (1.8-2.4)
[2024-01-30] MEDS: Furosemide 100 MG/10 ML SDV IVPUSH ONE (07:43)
[2024-01-30] MEDS: Nitroglycerin/D5W 25 MG/250 ML BOTTLE IV SCH (07:44)
[2024-01-30] MEDS: LORazepam 2 MG/ML SDV IVPUSH ONE (08:04)
[2024-01-30] MEDS: LORazepam 2 MG/ML SDV ONE (08:04)
== END 2024-01-30 08:28 ==
LOC: DL.ED 03:57
DX: I12.0 Hypertensive chronic kidney disease with stage 5 chronic kidney disease or end stage renal disease (principal); N18.6 End stage renal disease; J81.0 Acute pulmonary edema; E11.22 Type 2 diabetes mellitus with diabetic chronic kidney disease; J45.909 Unspecified asthma, uncomplicated; Z79.899 Other long term (current) drug therapy; Z99.2 Dependence on renal dialysis
CPT/HCPCS: 36415; 71045; 80053; 82803; 83735; 83880; 84484; 85025; 96365; 96375; 99285; 99285-25; A9270-GY; J1940; J2060; J2305; J3490

== ENCOUNTER 2024-03-05 03:05 | Emergency (ER) | payer MEDICARE ==
[2024-03-05] MEDS: Sodium Chloride 0.9% 10 ML Syringe FLUSH PRN (03:12)
[2024-03-05 03:20] LABS: BASOPHILS PERCENT AUTO 0.2 % (0.0-1.0); EOSINOPHILS PERCENT AUTO 2.3 % (1.0-3.0); HEMATOCRIT 34.7 % (40.0-54.0); HEMOGLOBIN 10.8 g/dL (14.0-18.0); LYMPHOCYTES PERCENT AUTO 5.4 % (20.5-50.1); MEAN CORPUSCULAR HGB CONC 31.1 g/dL (33.0-35.0); MEAN CORPUSCULAR VOLUME 93.3 fL (80-100); MONOCYTES PERCENT AUTO 4.3 % (2-8); NEUTROPHILS PERCENT AUTO 87.8 % (42.2-75.2); PLATELET COUNT,PLT 189 10^3/uL (150-450); RED BLOOD CELL COUNT 3.72 10^6/uL (4.6-6.2); WHITE BLOOD CELL COUNT,WBC 8.4 10^3/uL (5.0-10.0)
[2024-03-05 03:45] LABS: ALANINE AMINOTRANSFERASE,ALT 10 U/L (16-63); ALBUMIN 3.3 g/dL (3.4-5.0); ALKALINE PHOSPHATASE 82 U/L (46-116); ANION GAP 19.2 mEq/L (7-13); ASPARTATE AMNIOTRANSFERASE,AST 11 U/L (15-37); BILIRUBIN TOTAL 0.6 mg/dL (0.2-1.0); BLOOD UREA NITROGEN,BUN 72 mg/dL (7-18); BUN/CREATININE RATIO 6.7 (No establ ref range); CALCIUM 8.5 mg/dL (8.5-10.1); CARBON DIOXIDE,CO2 25 mmol/L (21-32); CHLORIDE,CL 102 mmol/L (98-107); GLUCOSE RANDOM 84 mg/dL (70-99); POTASSIUM,K 5.2 mmol/L (3.5-5.1); PROTEIN TOTAL,TP 8.2 g/dL (6.4-8.2); SODIUM,NA 141 mmol/L (136-145)
[2024-03-05 03:50] LABS: B-TYPE NATRIURETIC PEPTIDE,BNP > 5000 pg/ml (0-100)
[2024-03-05 03:52] LABS: A/G RATIO 0.67; CREATININE 10.81 mg/dL (0.70-1.30); ESTIMATED GFR 5 mL/min (>=60)
[2024-03-05 04:01] LABS: O2 DELIVERY DEVICE BIPAP
[2024-03-05 04:04] LABS: PCO2 VENOUS 49 mmHg (41-51)
[2024-03-05 04:05] LABS: BASE EXCESS VENOUS -2.7 mmol/l ((-2)-(+3)); BICARBONATE,VENOUS 23 mmol/l (19-25); O2 SATURATION VENOUS 70.1 % (60-80); PO2 VENOUS 51 mmHg (35-42)
[2024-03-05 04:33] VITALS: BP 190/118; PULSE 105
[2024-03-05] MEDS: LORazepam 2 MG/ML SDV IVPUSH ONE (05:03)
[2024-03-05] MEDS: LORazepam 2 MG/ML SDV ONE (05:52)
== END 2024-03-05 05:38 ==
LOC: DL.ED 03:05
DX: I13.2 Hypertensive heart and chronic kidney disease with heart failure and with stage 5 chronic kidney disease, or end stage renal disease (principal); I50.9 Heart failure, unspecified; N18.6 End stage renal disease; R79.89 Other specified abnormal findings of blood chemistry; R06.03 Acute respiratory distress; J44.9 Chronic obstructive pulmonary disease, unspecified; E11.22 Type 2 diabetes mellitus with diabetic chronic kidney disease; Z95.1 Presence of aortocoronary bypass graft; Z99.2 Dependence on renal dialysis; Z79.899 Other long term (current) drug therapy
CPT/HCPCS: 36415; 71045; 80053; 82803; 83880; 84484; 85025; 93005; 93010; 96374; 99285; 99285-25; J2060; J3490

== ENCOUNTER 2024-04-02 10:51 | Emergency (ER) | payer MEDICARE, OTHER ==
[2024-04-02] MEDS ORDERED: Sodium Chloride 0.9% 10 ML Syringe FLUSH PRN (11:14)
[2024-04-02 11:31] LABS: BASOPHILS PERCENT AUTO 0.2 % (0.0-1.0); EOSINOPHILS PERCENT AUTO 3.5 % (1.0-3.0); HEMATOCRIT 34.6 % (40.0-54.0); HEMOGLOBIN 10.7 g/dL (14.0-18.0); MEAN CORPUSCULAR HEMOGLOBIN 29.6 pg (27.0-34.0); MEAN CORPUSCULAR HGB CONC 30.9 g/dL (33.0-35.0); MEAN CORPUSCULAR VOLUME 95.6 fL (80-100); MONOCYTES PERCENT AUTO 5.9 % (2-8); NEUTROPHILS PERCENT AUTO 84.4 % (42.2-75.2); PLATELET COUNT,PLT 137 10^3/uL (150-450); RED BLOOD CELL COUNT 3.62 10^6/uL (4.6-6.2); WHITE BLOOD CELL COUNT,WBC 6.7 10^3/uL (5.0-10.0)
[2024-04-02 11:44] VITALS: BP 143/92; PULSE 98
[2024-04-02 11:51] LABS: INR 1.2 (0.9-1.2); PTT,PARTIAL THROMBOPLSTIN TIME 30.6 SEC (22.0-34.0)
[2024-04-02 11:56] LABS: A/G RATIO 0.8; ALANINE AMINOTRANSFERASE,ALT 7 U/L (16-63); ALBUMIN 3.6 g/dL (3.4-5.0); ALKALINE PHOSPHATASE 67 U/L (46-116); ASPARTATE AMNIOTRANSFERASE,AST 14 U/L (15-37); BILIRUBIN TOTAL 0.9 mg/dL (0.2-1.0); BLOOD UREA NITROGEN,BUN 76 mg/dL (7-18); BUN/CREATININE RATIO 7.2 (No establ ref range); CALCIUM 9.3 mg/dL (8.5-10.1); CARBON DIOXIDE,CO2 22 mmol/L (21-32); CHLORIDE,CL 98 mmol/L (98-107); EST CRCL DRUG DOSING (CG) 6.99 mL/min; GLUCOSE RANDOM 95 mg/dL (70-99); PROTEIN TOTAL,TP 8.4 g/dL (6.4-8.2)
[2024-04-02 12:00] LABS: ANION GAP 24.1 mEq/L (7-13); ESTIMATED GFR 5 mL/min (>=60); POTASSIUM,K 6.1 mmol/L (3.5-5.1); SODIUM,NA 138 mmol/L (136-145)
[2024-04-02 12:05] LABS: B-TYPE NATRIURETIC PEPTIDE,BNP > 5000 pg/ml (0-100)
== END 2024-04-02 12:29 | disposition home or self-care (01) ==
LOC: DL.ED 10:51
DX: I12.0 Hypertensive chronic kidney disease with stage 5 chronic kidney disease or end stage renal disease (principal); N18.6 End stage renal disease; E87.70 Fluid overload, unspecified; R06.02 Shortness of breath; J44.9 Chronic obstructive pulmonary disease, unspecified; E11.22 Type 2 diabetes mellitus with diabetic chronic kidney disease; K21.9 Gastro-esophageal reflux disease without esophagitis; Z99.2 Dependence on renal dialysis; Z95.1 Presence of aortocoronary bypass graft; Z79.890 Hormone replacement therapy; Z79.899 Other long term (current) drug therapy
CPT/HCPCS: 36415; 71045; 80053; 83880; 84484; 85025; 85610; 85730; 93005; 93010; 99285

== ENCOUNTER 2024-04-25 18:54 | Emergency (ER) | payer MEDICARE, OTHER ==
[2024-04-25 19:30] VITALS: BP 166/88; PULSE 88
[2024-04-25] MEDS: Cyclobenzaprine 10 MG Tab PO ONE (19:35)
== END 2024-04-25 19:45 | disposition home or self-care (01) ==
LOC: DL.ED 18:54
DX: M62.830 Muscle spasm of back (principal); I10 Essential (primary) hypertension; J44.9 Chronic obstructive pulmonary disease, unspecified; E11.9 Type 2 diabetes mellitus without complications; Z95.1 Presence of aortocoronary bypass graft; Z79.899 Other long term (current) drug therapy; Z79.890 Hormone replacement therapy
CPT/HCPCS: 99283; A9270-GY

== ENCOUNTER 2024-05-03 12:36 | Emergency (ER) | payer MEDICARE, OTHER ==
[2024-05-03] MEDS ORDERED: Sodium Chloride 0.9% 10 ML Syringe FLUSH PRN ×2 (12:53)
[2024-05-03 13:25] LABS: BASOPHILS PERCENT AUTO 0.1 % (0.0-1.0); EOSINOPHILS PERCENT AUTO 4.5 % (1.0-3.0); HEMATOCRIT 36.8 % (40.0-54.0); HEMOGLOBIN 11.5 g/dL (14.0-18.0); LYMPHOCYTES PERCENT AUTO 8.9 % (20.5-50.1); MEAN CORPUSCULAR HEMOGLOBIN 28.8 pg (27.0-34.0); MEAN CORPUSCULAR HGB CONC 31.3 g/dL (33.0-35.0); MEAN CORPUSCULAR VOLUME 92.2 fL (80-100); MONOCYTES PERCENT AUTO 6.3 % (2-8); NEUTROPHILS PERCENT AUTO 80.2 % (42.2-75.2); PLATELET COUNT,PLT 214 10^3/uL (150-450); RED BLOOD CELL COUNT 3.99 10^6/uL (4.6-6.2); WHITE BLOOD CELL COUNT,WBC 7.2 10^3/uL (5.0-10.0)
[2024-05-03 13:40] LABS: INR 1.1 (0.9-1.2); PROTHROMBIN TIME 11.7 SEC (9.0-12.0)
[2024-05-03 13:48] LABS: ALANINE AMINOTRANSFERASE,ALT 7 U/L (16-63); ALBUMIN 3.2 g/dL (3.4-5.0); ALKALINE PHOSPHATASE 91 U/L (46-116); ANION GAP 20.6 mEq/L (7-13); ASPARTATE AMNIOTRANSFERASE,AST 12 U/L (15-37); BILIRUBIN TOTAL 0.6 mg/dL (0.2-1.0); BLOOD UREA NITROGEN,BUN 73 mg/dL (7-18); BUN/CREATININE RATIO 7.2 (No establ ref range); CALCIUM 9.1 mg/dL (8.5-10.1); CARBON DIOXIDE,CO2 24 mmol/L (21-32); CHLORIDE,CL 101 mmol/L (98-107); EST CRCL DRUG DOSING (CG) 7.18 mL/min; GLUCOSE RANDOM 96 mg/dL (70-99); POTASSIUM,K 5.6 mmol/L (3.5-5.1); PROTEIN TOTAL,TP 8.6 g/dL (6.4-8.2); SODIUM,NA 140 mmol/L (136-145)
[2024-05-03 13:49] LABS: A/G RATIO 0.59; ESTIMATED GFR 5 mL/min (>=60)
[2024-05-03 13:51] LABS: B-TYPE NATRIURETIC PEPTIDE,BNP > 5000 pg/ml (0-100)
[2024-05-03] MEDS: Furosemide 40 MG/4 ML VIAL IVPUSH ONE (13:51)
[2024-05-03] MEDS: Losartan 50 MG Tab PO ONE (13:59)
[2024-05-03] MEDS: Metoprolol Succinate 50 MG Tab.ER PO ONE (13:59)
[2024-05-03 14:38] VITALS: BP 169/158; PULSE 95
== END 2024-05-03 15:20 ==
LOC: DL.ED 12:36
DX: I11.0 Hypertensive heart disease with heart failure (principal); I50.9 Heart failure, unspecified; E87.5 Hyperkalemia; R79.89 Other specified abnormal findings of blood chemistry; J44.9 Chronic obstructive pulmonary disease, unspecified; E11.9 Type 2 diabetes mellitus without complications; Z87.891 Personal history of nicotine dependence; Z79.899 Other long term (current) drug therapy
CPT/HCPCS: 36415; 71045; 80053; 83880; 84484; 85025; 85610; 93005; 96374; 99285; A9270; J1940; 93010

== ENCOUNTER 2024-05-21 08:41 | Emergency (ER) | payer MEDICARE, OTHER ==
[2024-05-21] MEDS ORDERED: Sodium Chloride 0.9% 10 ML Syringe FLUSH PRN (08:51)
[2024-05-21 09:18] LABS: BASOPHILS PERCENT AUTO 0.3 % (0.0-1.0); EOSINOPHILS PERCENT AUTO 3.8 % (1.0-3.0); HEMATOCRIT 36.7 % (40.0-54.0); HEMOGLOBIN 11.4 g/dL (14.0-18.0); LYMPHOCYTES PERCENT AUTO 8.6 % (20.5-50.1); MEAN CORPUSCULAR HEMOGLOBIN 28.8 pg (27.0-34.0); MEAN CORPUSCULAR HGB CONC 31.1 g/dL (33.0-35.0); MEAN CORPUSCULAR VOLUME 92.7 fL (80-100); MONOCYTES PERCENT AUTO 6.2 % (2-8); NEUTROPHILS PERCENT AUTO 81.1 % (42.2-75.2); PLATELET COUNT,PLT 211 10^3/uL (150-450); RED BLOOD CELL COUNT 3.96 10^6/uL (4.6-6.2); WHITE BLOOD CELL COUNT,WBC 6.3 10^3/uL (5.0-10.0)
[2024-05-21 09:31] LABS: INR 1.1 (0.9-1.2); PROTHROMBIN TIME 11.7 SEC (9.0-12.0)
[2024-05-21 09:37] LABS: A/G RATIO 0.6; ALANINE AMINOTRANSFERASE,ALT 8 U/L (16-63); ALBUMIN 3.4 g/dL (3.4-5.0); ALKALINE PHOSPHATASE 85 U/L (46-116); ANION GAP 21.2 mEq/L (7-13); ASPARTATE AMNIOTRANSFERASE,AST 11 U/L (15-37); BILIRUBIN TOTAL 1.4 mg/dL (0.2-1.0); BLOOD UREA NITROGEN,BUN 70 mg/dL (7-18); BUN/CREATININE RATIO 6.8 (No establ ref range); CALCIUM 9.1 mg/dL (8.5-10.1); CARBON DIOXIDE,CO2 24 mmol/L (21-32); CHLORIDE,CL 99 mmol/L (98-107); GLUCOSE RANDOM 103 mg/dL (70-99); MAGNESIUM 2.5 mg/dL (1.8-2.4); POTASSIUM,K 6.2 mmol/L (3.5-5.1); PROTEIN TOTAL,TP 9.2 g/dL (6.4-8.2); SODIUM,NA 138 mmol/L (136-145)
[2024-05-21 09:38] LABS: ESTIMATED GFR 5 mL/min (>=60)
[2024-05-21 09:39] LABS: CREATININE 10.22 mg/dL (0.70-1.30)
[2024-05-21 09:43] LABS: B-TYPE NATRIURETIC PEPTIDE,BNP 3820 pg/ml (0-100)
[2024-05-21] MEDS: Insulin Regular, Human 100 Units/ML 3 ML Vial IVPUSH ONE (10:01)
[2024-05-21] MEDS: 50% Dextrose in Water 50 ML Syringe IV ONE (10:02)
[2024-05-21] MEDS: Calcium Chloride 10% 1 GM/10 ML Syringe IVPUSH ONE (10:02)
[2024-05-21 10:35] LABS: CORONAVIRUS COVID-19 NAA NEGATIVE (NEGATIVE); INFLUENZA A NAA NEGATIVE (NEGATIVE); INFLUENZA B NAA NEGATIVE (NEGATIVE)
[2024-05-21] MEDS: Nitroglycerin 0.4 MG Tab.SL SL ONE (10:52)
[2024-05-21] MEDS: Nitroglycerin 0.4 MG Tab.SL ONE (10:53)
[2024-05-21] MEDS: Furosemide 40 MG/4 ML VIAL IVPUSH ONE (10:53)
[2024-05-21 11:20] LABS: O2 DELIVERY DEVICE NASAL CANNULA
[2024-05-21 11:27] LABS: BASE EXCESS VENOUS -5.9 mmol/l ((-2)-(+3)); BICARBONATE,VENOUS 21 mmol/l (19-25); O2 SATURATION VENOUS 66.4 % (60-80); PCO2 VENOUS 48 mmHg (41-51); PH,VENOUS 7.26 (7.31-7.41); PO2 VENOUS 48 mmHg (35-42)
[2024-05-21] MEDS: Labetalol 20 MG/4 ML Syringe IVPUSH ONE (11:30)
[2024-05-21] MEDS: hydrALAZINE 20 MG/ML SDV IVPUSH ONE (11:47)
[2024-05-21] MEDS: LORazepam 2 MG/ML SDV IVPUSH ONE (11:48)
[2024-05-21] MEDS ORDERED: 50% Dextrose in Water 50 ML Syringe ONE (12:26)
[2024-05-21] MEDS: propofoL 100 ML IV SCH (12:34)
[2024-05-21 12:46] VITALS: BP 147/74; PULSE 61
[2024-05-21] MEDS: fentaNYL 500 MCG in Sodium Chloride 0.9% 50 ML IV SCH (13:36)
[2024-05-21] MEDS: Midazolam 50 MG in Sodium Chloride 0.9% 40 ML IV SCH (13:50)
[2024-05-21 14:44] LABS: O2 DELIVERY DEVICE BIPAP
[2024-05-21 14:46] LABS: BICARBONATE,VENOUS 19 mmol/l (19-25); O2 SATURATION VENOUS 89.7 % (60-80); PCO2 VENOUS 48 mmHg (41-51); PH,VENOUS 7.22 (7.31-7.41); PO2 VENOUS 77 mmHg (35-42)
== END 2024-05-21 15:10 ==
LOC: DL.ED 08:41
DX: J96.91 Respiratory failure, unspecified with hypoxia (principal); J96.92 Respiratory failure, unspecified with hypercapnia; J81.1 Chronic pulmonary edema; R79.89 Other specified abnormal findings of blood chemistry; N18.6 End stage renal disease; R06.03 Acute respiratory distress; E87.5 Hyperkalemia; I10 Essential (primary) hypertension; E11.9 Type 2 diabetes mellitus without complications; Z79.890 Hormone replacement therapy; Z79.899 Other long term (current) drug therapy
CPT/HCPCS: 0240U; 31500; 36415; 43752; 51702; 71045; 71046; 80053; 82803; 82947; 83735; 83880; 84132; 84484; 85025; 85610; 93005; 96365; 96366; 96367; 96368; 96375; 99285; A9270; J1815; J1920; J1940; J2060; J2250; J2704; J3010; J3490; 93010

== ENCOUNTER 2024-08-21 16:24 | Emergency (ER) | payer MEDICARE, OTHER ==
[~2024-08-21 16:24] MED LIST changes: -Albuterol/Ipratropium 3.0-0.5 MG/3 ML Neb Soln ONE
[2024-08-21 17:02] LABS: HEMATOCRIT 34.9 % (40.0-54.0); HEMOGLOBIN 10.6 g/dL (14.0-18.0); LYMPHOCYTES PERCENT AUTO 23.7 % (20.5-50.1); MEAN CORPUSCULAR HEMOGLOBIN 29.9 pg (27.0-34.0); MEAN CORPUSCULAR HGB CONC 30.4 g/dL (33.0-35.0); MEAN CORPUSCULAR VOLUME 98.3 fL (80-100); MONOCYTES PERCENT AUTO 10.5 % (2-8); NEUTROPHILS PERCENT AUTO 58.8 % (42.2-75.2); PLATELET COUNT,PLT 221 10^3/uL (150-450); RED BLOOD CELL COUNT 3.55 10^6/uL (4.6-6.2); WHITE BLOOD CELL COUNT,WBC 6.8 10^3/uL (5.0-10.0)
[2024-08-21 17:24] LABS: B-TYPE NATRIURETIC PEPTIDE,BNP > 5000 pg/ml (0-100)
[2024-08-21 17:30] LABS: ALANINE AMINOTRANSFERASE,ALT 13 U/L (16-63); ALKALINE PHOSPHATASE 119 U/L (46-116); ASPARTATE AMNIOTRANSFERASE,AST 23 U/L (15-37); BILIRUBIN TOTAL 0.5 mg/dL (0.2-1.0); BLOOD UREA NITROGEN,BUN 44 mg/dL (7-18); BUN/CREATININE RATIO 7.9 (No establ ref range); C-REACTIVE PROTEIN 10.49 ng/dL (<=0.50); CARBON DIOXIDE,CO2 29 mmol/L (21-32); CHLORIDE,CL 98 mmol/L (98-107); CREATININE 5.57 mg/dL (0.70-1.30); EST CRCL DRUG DOSING (CG) 12.57 mL/min; GLUCOSE RANDOM 81 mg/dL (70-99); MAGNESIUM 2.3 mg/dL (1.8-2.4); PHOSPHORUS 5.4 mg/dL (2.6-4.7); PROTEIN TOTAL,TP 8.3 g/dL (6.4-8.2); SODIUM,NA 136 mmol/L (136-145)
[2024-08-21 17:35] LABS: A/G RATIO 0.32; ANION GAP 15.1 mEq/L (7-13); ESTIMATED GFR 11 mL/min (>=60); POTASSIUM,K 6.1 mmol/L (3.5-5.1)
[2024-08-21 17:54] LABS: INR 1.2 (0.9-1.2); PROTHROMBIN TIME 12.3 SEC (9.0-12.0); PTT,PARTIAL THROMBOPLSTIN TIME 31.4 SEC (22.0-34.0)
[2024-08-21 19:20] VITALS: BP 157/68; PULSE 53
== END 2024-08-21 19:20 ==
LOC: DL.ED 16:24
DX: I96 Gangrene, not elsewhere classified (principal); E87.6 Hypokalemia; I12.0 Hypertensive chronic kidney disease with stage 5 chronic kidney disease or end stage renal disease; N18.6 End stage renal disease; E11.22 Type 2 diabetes mellitus with diabetic chronic kidney disease; J44.89 Other specified chronic obstructive pulmonary disease; Z95.5 Presence of coronary angioplasty implant and graft; Z79.890 Hormone replacement therapy; Z79.899 Other long term (current) drug therapy; Z99.2 Dependence on renal dialysis
CPT/HCPCS: 36415; 71045; 73660-LT; 80053; 82140; 83605; 83735; 83880; 84100; 84145; 84484; 85025; 85610; 85730; 86140; 93005; 99285

== ENCOUNTER 2024-08-29 19:04 | Emergency (ER) | payer MEDICARE, OTHER ==
[2024-08-29 19:57] LABS: HEMATOCRIT 31.9 % (40.0-54.0); LYMPHOCYTES PERCENT AUTO 6.4 % (20.5-50.1); MEAN CORPUSCULAR HEMOGLOBIN 29.1 pg (27.0-34.0); MEAN CORPUSCULAR HGB CONC 31.3 g/dL (33.0-35.0); MEAN CORPUSCULAR VOLUME 92.7 fL (80-100); MONOCYTES PERCENT AUTO 4.8 % (2-8); NEUTROPHILS PERCENT AUTO 86.8 % (42.2-75.2); PLATELET COUNT,PLT 185 10^3/uL (150-450); RED BLOOD CELL COUNT 3.44 10^6/uL (4.6-6.2); WHITE BLOOD CELL COUNT,WBC 6.1 10^3/uL (5.0-10.0)
[2024-08-29 20:45] LABS: ALANINE AMINOTRANSFERASE,ALT 12 U/L (16-63); ALBUMIN 2.1 g/dL (3.4-5.0); ALKALINE PHOSPHATASE 119 U/L (46-116); ANION GAP 16.6 mEq/L (7-13); ASPARTATE AMNIOTRANSFERASE,AST 16 U/L (15-37); BILIRUBIN TOTAL 0.6 mg/dL (0.2-1.0); BLOOD UREA NITROGEN,BUN 40 mg/dL (7-18); BUN/CREATININE RATIO 8.5 (No establ ref range); CARBON DIOXIDE,CO2 27 mmol/L (21-32); CHLORIDE,CL 98 mmol/L (98-107); CREATININE 4.68 mg/dL (0.70-1.30); GLUCOSE RANDOM 56 mg/dL (70-99); MAGNESIUM 2.2 mg/dL (1.8-2.4); POTASSIUM,K 4.6 mmol/L (3.5-5.1); PROTEIN TOTAL,TP 8.3 g/dL (6.4-8.2); SODIUM,NA 137 mmol/L (136-145)
[2024-08-29 20:46] LABS: A/G RATIO 0.34; ESTIMATED GFR 13 mL/min (>=60); ETHANOL BLOOD MEDICAL < 3 mg/dL (0)
[2024-08-29 20:48] LABS: LACTIC ACID 1.2 mmol/L (0.4-2.0)
[2024-08-29] MEDS ORDERED: cefTRIAXone 1 GM, Lidocaine 1% 2.1 ML IM ONE (22:03)
[2024-08-30] MEDS: Piperacillin/Tazobactam 4.5 GM in Sodium Chloride 0.9% 100 ML IV ONE (02:11)
[2024-08-30] MEDS: Sodium Chloride 0.9% 100 ML ONE (02:29)
[2024-08-30] MEDS: Piperacillin/Tazobactam 4.5 GM Vial ONE (02:29)
[2024-08-30 07:39] VITALS: BP 157/58; PULSE 67
== END 2024-08-30 07:56 ==
LOC: DL.ED 19:04
DX: J18.9 Pneumonia, unspecified organism (principal); R41.82 Altered mental status, unspecified; I96 Gangrene, not elsewhere classified; I13.0 Hypertensive heart and chronic kidney disease with heart failure and stage 1 through stage 4 chronic kidney disease, or unspecified chronic kidney disease; I50.9 Heart failure, unspecified; N18.6 End stage renal disease; D63.1 Anemia in chronic kidney disease; J44.89 Other specified chronic obstructive pulmonary disease; E11.22 Type 2 diabetes mellitus with diabetic chronic kidney disease; Z99.2 Dependence on renal dialysis
CPT/HCPCS: 36415; 70450; 71045; 73630; 80053; 80307; 82140; 83605; 83735; 83880; 84484; 85025; 87040; 93005; 93010; 99285; J2543; J3490

== ENCOUNTER 2024-10-04 17:44 | Emergency (ER) | payer MEDICARE, OTHER ==
[2024-10-04] MEDS ORDERED: Sodium Chloride 0.9% 10 ML Syringe FLUSH PRN ×2 (17:48)
[2024-10-04 18:08] LABS: BASOPHILS PERCENT AUTO 0.3 % (0.0-1.0); EOSINOPHILS PERCENT AUTO 5.5 % (1.0-3.0); HEMOGLOBIN 9.7 g/dL (14.0-18.0); MEAN CORPUSCULAR HEMOGLOBIN 28.8 pg (27.0-34.0); MEAN CORPUSCULAR HGB CONC 30.3 g/dL (33.0-35.0); MONOCYTES PERCENT AUTO 4.9 % (2-8); NEUTROPHILS PERCENT AUTO 76.3 % (42.2-75.2); PLATELET COUNT,PLT 204 10^3/uL (150-450); RED BLOOD CELL COUNT 3.37 10^6/uL (4.6-6.2); WHITE BLOOD CELL COUNT,WBC 7.3 10^3/uL (5.0-10.0)
[2024-10-04 18:14] VITALS: BP 166/105; PULSE 87
[2024-10-04 18:31] LABS: ALANINE AMINOTRANSFERASE,ALT 6 U/L (16-63); ALBUMIN 2.3 g/dL (3.4-5.0); ALKALINE PHOSPHATASE 103 U/L (46-116); ASPARTATE AMNIOTRANSFERASE,AST 9 U/L (15-37); BILIRUBIN TOTAL 0.7 mg/dL (0.2-1.0); BLOOD UREA NITROGEN,BUN 59 mg/dL (7-18); BUN/CREATININE RATIO 8.1 (No establ ref range); CALCIUM 8.8 mg/dL (8.5-10.1); CARBON DIOXIDE,CO2 29 mmol/L (21-32); CHLORIDE,CL 100 mmol/L (98-107); EST CRCL DRUG DOSING (CG) 9.94 mL/min; GLUCOSE RANDOM 90 mg/dL (70-99); PROTEIN TOTAL,TP 8.8 g/dL (6.4-8.2); SODIUM,NA 139 mmol/L (136-145)
[2024-10-04 18:32] LABS: A/G RATIO 0.35; B-TYPE NATRIURETIC PEPTIDE,BNP > 5000 pg/ml (0-100); ESTIMATED GFR 8 mL/min (>=60)
[2024-10-04 18:35] LABS: INR 1.1 (0.9-1.2); PROTHROMBIN TIME 11.7 SEC (9.0-12.0)
== END 2024-10-04 19:03 | disposition home or self-care (01) ==
LOC: DL.ED 17:44
DX: I11.0 Hypertensive heart disease with heart failure (principal); I50.9 Heart failure, unspecified; N19 Unspecified kidney failure; Z91.148 Patient's other noncompliance with medication regimen for other reason; J44.89 Other specified chronic obstructive pulmonary disease; E11.9 Type 2 diabetes mellitus without complications; Z79.890 Hormone replacement therapy; Z79.899 Other long term (current) drug therapy
CPT/HCPCS: 36415; 71045; 80053; 83880; 84484; 85025; 85610; 93005; 99285

== ENCOUNTER 2024-10-19 20:41 | Emergency (ER) | payer MEDICARE, OTHER ==
[2024-10-19 22:03] VITALS: BP 172/86; PULSE 84
== END 2024-10-20 01:16 | disposition home or self-care (01) ==
LOC: DL.ED 20:41
DX: J10.1 Influenza due to other identified influenza virus with other respiratory manifestations (principal); I12.0 Hypertensive chronic kidney disease with stage 5 chronic kidney disease or end stage renal disease; N18.6 End stage renal disease; J44.89 Other specified chronic obstructive pulmonary disease; R09.89 Other specified symptoms and signs involving the circulatory and respiratory systems; E11.22 Type 2 diabetes mellitus with diabetic chronic kidney disease; Z99.2 Dependence on renal dialysis; Z95.1 Presence of aortocoronary bypass graft; Z79.84 Long term (current) use of oral hypoglycemic drugs; Z79.890 Hormone replacement therapy; Z79.899 Other long term (current) drug therapy
CPT/HCPCS: 71045; 87428-QW; 93005; 93010; 99285

== ENCOUNTER 2024-12-30 21:09 | Emergency (ER) | payer MEDICARE, OTHER ==
[2024-12-30 21:12] VITALS: BP 158/84; PULSE 74
[2024-12-30 23:04] LABS: BASE EXCESS VENOUS -6.1 mmol/l ((-2)-(+3)); BASOPHILS PERCENT AUTO 0.2 % (0.0-1.0); BICARBONATE,VENOUS 22 mmol/l (19-25); EOSINOPHILS PERCENT AUTO 5.2 % (1.0-3.0); HEMATOCRIT 33.8 % (40.0-54.0); LYMPHOCYTES PERCENT AUTO 7.9 % (20.5-50.1); MEAN CORPUSCULAR HEMOGLOBIN 30.7 pg (27.0-34.0); MEAN CORPUSCULAR HGB CONC 29.6 g/dL (33.0-35.0); MEAN CORPUSCULAR VOLUME 103.7 fL (80-100); MONOCYTES PERCENT AUTO 5.6 % (2-8); NEUTROPHILS PERCENT AUTO 81.1 % (42.2-75.2); O2 DELIVERY DEVICE NASAL CANNULA; O2 SATURATION VENOUS 70.5 % (60-80); PCO2 VENOUS 57 mmHg (41-51); PLATELET COUNT,PLT 124 10^3/uL (150-450); PO2 VENOUS 61 mmHg (35-42); RED BLOOD CELL COUNT 3.26 10^6/uL (4.6-6.2); WHITE BLOOD CELL COUNT,WBC 5.7 10^3/uL (5.0-10.0)
[2024-12-30 23:05] LABS: PH,VENOUS 7.21 (7.31-7.41)
[2024-12-30 23:28] LABS: ALBUMIN 2.1 g/dL (3.4-5.0); ALKALINE PHOSPHATASE 91 U/L (46-116); ANION GAP 21.6 mEq/L (7-13); ASPARTATE AMNIOTRANSFERASE,AST 9 U/L (15-37); BILIRUBIN TOTAL 0.5 mg/dL (0.2-1.0); BLOOD UREA NITROGEN,BUN 83 mg/dL (7-18); BUN/CREATININE RATIO 7.6 (No establ ref range); CALCIUM 7.7 mg/dL (8.5-10.1); CARBON DIOXIDE,CO2 23 mmol/L (21-32); CHLORIDE,CL 106 mmol/L (98-107); CREATININE 10.97 mg/dL (0.70-1.30); GLUCOSE RANDOM 84 mg/dL (70-99); LIPASE 8 U/L (16-77); SODIUM,NA 143 mmol/L (136-145)
[2024-12-30 23:33] LABS: LACTIC ACID 0.6 mmol/L (0.4-2.0)
[2024-12-30 23:38] LABS: B-TYPE NATRIURETIC PEPTIDE,BNP > 5000 pg/ml (0-100)
[2024-12-30 23:40] LABS: A/G RATIO 0.36; ALANINE AMINOTRANSFERASE,ALT < 6 U/L (16-63); ESTIMATED GFR 5 mL/min (>=60); ETHANOL BLOOD MEDICAL < 3 mg/dL (0); POTASSIUM,K 7.6 mmol/L (3.5-5.1)
[2024-12-31] MEDS: Sodium Bicarbonate 8.4% 50 MEQ/50 ML Syringe IVPUSH ONE (00:05)
[2024-12-31] MEDS: Calcium Chloride 10% 1 GM/10 ML Syringe IVPUSH ONE (00:05)
[2024-12-31] MEDS: 50% Dextrose in Water 50 ML Syringe IVPUSH ONE (00:05)
[2024-12-31] MEDS: Insulin Regular, Human 100 Units/ML 10 ML Vial IV ONE (00:07)
[2024-12-31] MEDS: Sodium Zirconium Cyclosilicate 5 GM Packet PO ONE (00:11)
== END 2024-12-31 00:40 ==
LOC: DL.ED 21:09
DX: I13.2 Hypertensive heart and chronic kidney disease with heart failure and with stage 5 chronic kidney disease, or end stage renal disease (principal); E11.22 Type 2 diabetes mellitus with diabetic chronic kidney disease; I50.1 Left ventricular failure, unspecified; N18.6 End stage renal disease; E87.5 Hyperkalemia; J44.89 Other specified chronic obstructive pulmonary disease; Z79.890 Hormone replacement therapy; Z79.899 Other long term (current) drug therapy; Z79.02 Long term (current) use of antithrombotics/antiplatelets; Z99.2 Dependence on renal dialysis
CPT/HCPCS: 36415; 71045; 80053; 80307; 82803; 83605; 83690; 83735; 83880; 84484; 85025; 93005; 93010; 96374; 96375; 99285; 99285-25; A9270-GY; J3490